=== PATIENT | female | born 1935 | race African-American/Black ===

== ENCOUNTER 2016-11-07 09:56 | Inpatient (IN) | payer MEDICARE, BC ==
[~2016-11-07] VITALS: Ht 170.2 cm; Wt 75.3 kg
[~2016-11-07 09:56] MED LIST: ACCOLATE 220 MG/1 TA PO; ADALAT PO; ADVAIR 250/28 DISKUS IH; ALBUTEROL0.83 MG/ML IH; ATROVENT I0.2 MG/1 M IH; ATROVENT INHALE14 GM IH; AVELOX 400MG T400 MG PO; AVELOX400 MG PO; BROVANA15 MCG/2 M IH; CARDIZEM CD 24240 MG PO; CARDIZEM CD240 MG PO; CARDIZEM120 MG PO; CIPRO; CLOPIDOGREL; CLOPIDOGREL PO; COZAAR100 MG PO; COZAAR50 MG PO; DALIRESP500 MCG PO; DIFLUCAN 100MG100 MG PO; DIFLUCAN200 MG PO; DIOVAN80 M1 PO; DIPYRIDAMOLE; FLONASE NASAL S16 GM NS; FOSAMAX 70MG TA70 MG PO; GENTAMICIN180 MG/502 NS; HCTZ 25MG TAB25 MG PO; IPRATROPIUM 2.2.5 ML IH; K-LOR CON PO; KLOR-CON20 MEQ PO; LEVAQUIN 5500 MG/TA1 PO; LEVAQUIN 750MG750 M1 PO; LEVAQUIN 750MG750 MG PO; LIPITOR20 MG PO; MAXIPIME2 GM IJ; MAXIPIME2 GM IV; MUCINEX 60600 MG/TA1 PO; MUCINEX D 600 M1 TER PO; MUCINEX DM 30 M1 TE1 PO; MUCINEX1200 MG PO; MULTIPLE VITAMI1 CAP PO; MULTIPLE VITAMI1 TA5 PO; NEURONTIN100 MG/CAP PO; NEXIUM40 MG PO; NIFEDIPINE; NORCO 325 MG-51 TAB PO; PERFOROMIS20 MCG/2 M IH; PHENERGAN W/CO120 M1 PO; PLAVIX 75MG TAB75 MG PO; PREDNISONE 2.52.5 MG PO; PREDNISONE 5MG5 MG; PREDNISONE 5MG5 MG PO; PREDNISONE10 MG PO; PREDNISONE20 MG PO; PREVACID 15MG15 M1 PO; PREVACID 30MG30 MG PO; PRILOSEC 20MG20 MG PO; PROTONIX40 MG PO; PROVENTIL0.09 MG/A1 IH; PULMICORT R1 MG/2 ML IH; PULMICORT0.25 MG/2 IH; PULMICORT0.5 MG/2 M IH; PULMICORT0.5 MG/21 IH; PULMICORT180 MCG/A1 IH; PULMICORT180 MCG/Ac IH; REGLAN 10MG10 MG/TAB PO; SINGULAIR 110 MG/TAB PO; SINGULAIR10 MG PO; TESSALON P100 MG/CAP PO; THEO-24 30300 MG/CAP PO; THEO-24300 MG PO; THEODUR 300MG PO; TRIAMTERENE W/H1 TA1 PO; TUSS PO; ZITHROMAX 250M250 MG; ZITHROMAX 250M250 MG PO; ZITHROMAX Z PA250 MG PO; ZITHROMAX500 M2 PO; ZYRTEC 10MG10 MG PO; ZYRTEC5 MG PO; [UNRECOGNIZED DRUG - REMARK] PO; theophylline PO
[2016-11-07 10:18] LABS: BASO % 0.2 % (0.0-2.0); GRAN # 6.7 (1.4-6.5); GRAN % 74.6 % (42.2-75.2); HEMATOCRIT 41.6 % (37.0-47.0); HEMOGLOBIN 14.1 g/dl (12.5-16.0); LYMPH # 1.4 (1.2-3.4); LYMPH % 15.2 % (20.0-51.0); MEAN CELL VOLUME 88 fl (80.0-100.0); MEAN CORPUSCULAR HEMOGLOBIN 30 pg (27.0-31.0); MEAN CORPUSCULAR HGB CONC 34 g/dl (33.0-37.0); MEAN PLATELET VOLUME 9.5 fl (7.4-10.4); MONO # 0.8 (0.1-0.6); MONO % 9.1 % (1.7-9.3); PLATELET COUNT 248 K/mm3 (130-400); RED BLOOD COUNT 4.72 M/mm3 (4.10-5.30); REDCELL DISTRIBUTION WIDTH-CV 12.6 % (11.5-14.5); WHITE BLOOD COUNT 8.9 K/mm3 (4.8-10.8)
[2016-11-07 10:31] LABS: ADJUSTED CALCIUM 9.6 mg/dL (8.4-10.2); ALANINE AMINOTRANSFERASE 24 U/L (9-52); ALBUMIN 3.7 gm/dL (3.5-5.0); ALKALINE PHOSPHATASE 78 U/L (50-136); ANION GAP 10 mmol/L (7-16); BILIRUBIN,TOTAL 0.6 mg/dL (0.0-1.0); BLOOD UREA NITROGEN 23 mg/dL (7-17); CALCIUM 9.4 mg/dL (8.4-10.2); CARBON DIOXIDE 28 mmol/L (22-30); CHLORIDE 102 mmol/L (98-107); CREATININE, serum 1.05 mg/dL (0.52-1.25); GLUCOSE 76 mg/dL (74-106); POTASSIUM 3.3 mmol/L (3.4-5.0); SODIUM 140 mmol/L (137-145); TOTAL PROTEIN 6.8 gm/dL (6.4-8.2)
[2016-11-07 10:43] LABS: B-TYPE NATRIURETIC PEPTIDE 111 pg/mL (0-450)
[2016-11-07 10:47] LABS: TROPONIN-I < 0.012 ng/mL (0.000-0.034)
[2016-11-07 15:30] VITALS: BP 142/57; PULSE 112; TEMP 98.1
[2016-11-07 15:35] VITALS: BP 142/57; PULSE 114; TEMP 98.1
[2016-11-07 17:00] LABS: MAGNESIUM 2.1 mg/dL (1.6-2.3)
[2016-11-07 20:06] VITALS: BP 152/59; PULSE 124; TEMP 98.6
[2016-11-08] VITALS (7 sets, daily range): BP systolic 131–157; BP diastolic 45–78; PULSE 86–101; TEMP 97.8–98.7
[2016-11-08 07:47] LABS: HEMATOCRIT 38.9 % (37.0-47.0); HEMOGLOBIN 12.7 g/dl (12.5-16.0); MEAN CELL VOLUME 91 fl (80.0-100.0); MEAN CORPUSCULAR HEMOGLOBIN 30 pg (27.0-31.0); MEAN CORPUSCULAR HGB CONC 33 g/dl (33.0-37.0); MEAN PLATELET VOLUME 9.9 fl (7.4-10.4); PLATELET COUNT 241 K/mm3 (130-400); RED BLOOD COUNT 4.29 M/mm3 (4.10-5.30); REDCELL DISTRIBUTION WIDTH-CV 12.8 % (11.5-14.5); WHITE BLOOD COUNT 8.7 K/mm3 (4.8-10.8)
[2016-11-08 07:59] LABS: ADD PATHOLOGY DIFF REVIEW NO
[2016-11-08 08:14] LABS: CALCIUM 9.1 mg/dL (8.4-10.2); CREATININE, serum 1.05 mg/dL (0.52-1.25); POTASSIUM 3.9 mmol/L (3.4-5.0)
[2016-11-08 11:18] LABS: BAND 13 % (0-10); NEUTROPHILS 78 % (42.0-75.2); PLATELET ESTIMATE NORMAL (NORMAL); TOTAL CELLS COUNTED 100
[2016-11-09] VITALS (9 sets, daily range): BP systolic 121–166; BP diastolic 54–75; PULSE 82–114; TEMP 96.8–98.4
[2016-11-09 07:56] LABS: CALCIUM 9.5 mg/dL (8.4-10.2); CREATININE, serum 0.94 mg/dL (0.52-1.25); POTASSIUM 3.9 mmol/L (3.4-5.0)
[2016-11-10] VITALS (7 sets, daily range): BP systolic 135–174; BP diastolic 50–95; PULSE 64–98; TEMP 97.5–98.3
[2016-11-11 03:52] VITALS: BP 171/91; PULSE 79; TEMP 98.3
[2016-11-11 07:31] LABS: HEMATOCRIT 40.6 % (37.0-47.0); MEAN CELL VOLUME 90 fl (80.0-100.0); MEAN CORPUSCULAR HEMOGLOBIN 29 pg (27.0-31.0); MEAN CORPUSCULAR HGB CONC 32 g/dl (33.0-37.0); MEAN PLATELET VOLUME 9.9 fl (7.4-10.4); PLATELET COUNT 274 K/mm3 (130-400); RED BLOOD COUNT 4.49 M/mm3 (4.10-5.30); REDCELL DISTRIBUTION WIDTH-CV 12.5 % (11.5-14.5); WHITE BLOOD COUNT 15.3 K/mm3 (4.8-10.8)
[2016-11-11 07:44] LABS: CALCIUM 9.1 mg/dL (8.4-10.2); CREATININE, serum 0.92 mg/dL (0.52-1.25); POTASSIUM 3.2 mmol/L (3.4-5.0)
[2016-11-11 08:14] VITALS: BP 173/85; PULSE 82; TEMP 98.2
[2016-11-11] MEDS ORDERED: PREDNISONE10 MG PO (08:40)
[2016-11-11 09:35] LABS: MAGNESIUM 2.3 mg/dL (1.6-2.3)
[2016-11-11 11:38] VITALS: BP 144/77; PULSE 77; TEMP 98.1
[2016-11-11] MEDS ORDERED: CARDIZEM CD 24240 MG PO (13:43)
== END 2016-11-11 15:40 | disposition home health service (06) | DRG 164 ==
LOC: COL.ER 09:56 → MEDICAL 11:23
PROVIDERS: Emergency Medicine; Internal Medicine; Internal Medicine Pulmonary Disease; Nurse Practitioner Family; Physician Assistant
PROC: 0B968ZZ Drainage of Right Lower Lobe Bronchus, Via Natural or Artificial Opening Endoscopic (ICD-10-PCS; 2016-11-09)
PROC: 0B9B8ZZ Drainage of Left Lower Lobe Bronchus, Via Natural or Artificial Opening Endoscopic (ICD-10-PCS; 2016-11-09)
PROC: 0B958ZZ Drainage of Right Middle Lobe Bronchus, Via Natural or Artificial Opening Endoscopic (ICD-10-PCS; principal; 2016-11-09 09:00)
DX: J44.1 Chronic obstructive pulmonary disease with (acute) exacerbation (principal); J45.901 Unspecified asthma with (acute) exacerbation; I10 Essential (primary) hypertension; E87.6 Hypokalemia; Z66 Do not resuscitate; Z86.73 Personal history of transient ischemic attack (TIA), and cerebral infarction without residual deficits; Z87.891 Personal history of nicotine dependence; J32.9 Chronic sinusitis, unspecified
CPT/HCPCS: 99222-AI; 99232-AI; 99233-AI; 99239; A9284; J0692; J1650; J1956; J2704; J2930; J7120

== ENCOUNTER 2017-02-08 17:59 | Emergency (ER) | payer MEDICARE, BC ==
[~2017-02-08] VITALS: Ht 170.2 cm; Wt 74.1 kg
[2017-02-08 18:04] VITALS: TEMP 98.1
[2017-02-08 19:11] LABS: BASO # 0.1 (0.0-0.2); BASO % 0.9 % (0.0-2.0); EOS # 0.8 (0.0-0.7); EOS % 12.6 % (0-4.0); GRAN # 2.9 (1.4-6.5); GRAN % 44.6 % (42.2-75.2); HEMOGLOBIN 13.4 g/dl (12.5-16.0); LYMPH # 2.2 (1.2-3.4); LYMPH % 33.3 % (20.0-51.0); MEAN CELL VOLUME 88 fl (80.0-100.0); MEAN CORPUSCULAR HEMOGLOBIN 30 pg (27.0-31.0); MEAN CORPUSCULAR HGB CONC 34 g/dl (33.0-37.0); MEAN PLATELET VOLUME 9.9 fl (7.4-10.4); MONO # 0.5 (0.1-0.6); MONO % 8.3 % (1.7-9.3); PLATELET COUNT 270 K/mm3 (130-400); RED BLOOD COUNT 4.55 M/mm3 (4.10-5.30); REDCELL DISTRIBUTION WIDTH-CV 12.5 % (11.5-14.5); WHITE BLOOD COUNT 6.5 K/mm3 (4.8-10.8)
[2017-02-08 19:20] LABS: CALCIUM 10.4 mg/dL (8.4-10.2); CREATININE, serum 1.08 mg/dL (0.52-1.25); POTASSIUM 3.6 mmol/L (3.4-5.0)
[2017-02-08] MEDS ORDERED: MEDROL 4MG DOSPA4 MG PO (19:36)
[2017-02-08 20:13] VITALS: BP 102/68; PULSE 78
== END 2017-02-08 20:19 | disposition home or self-care (01) ==
LOC: COL.ER 17:59
PROVIDERS: Emergency Medicine
DX: J44.1 Chronic obstructive pulmonary disease with (acute) exacerbation (principal); I10 Essential (primary) hypertension; M19.90 Unspecified osteoarthritis, unspecified site; Z87.891 Personal history of nicotine dependence; Z79.02 Long term (current) use of antithrombotics/antiplatelets; Z86.73 Personal history of transient ischemic attack (TIA), and cerebral infarction without residual deficits; Z95.9 Presence of cardiac and vascular implant and graft, unspecified; Z90.710 Acquired absence of both cervix and uterus; Z98.51 Tubal ligation status
CPT/HCPCS: J7512

== ENCOUNTER 2017-02-28 21:56 | Emergency (ER) | payer MEDICARE, BC ==
[~2017-02-28] VITALS: Ht 170.2 cm; Wt 69.1 kg
[~2017-02-28 21:56] MED LIST changes: +MEDROL 4MG DOSPA4 MG PO
[2017-02-28 22:00] VITALS: TEMP 98.3
[2017-02-28 22:43] LABS: ARTERIAL BLD GAS O2 SATURATION 98.6 % (92-100); ARTERIAL BLD GAS TCO2 CT 27.5; ARTERIAL BLOOD GAS BASE EXCESS 1.2 (-2-2); ARTERIAL BLOOD GAS HCO3 26.2 meq/L (22-26); ARTERIAL BLOOD GAS PHT 7.41 C (7.35-7.45); ARTERIAL BLOOD GAS pH 7.41 (7.35-7.45); OXYHEMOGLOBIN 97.8 %
[2017-02-28 22:45] LABS: ALLEN TEST YES; ALLENS TEST RESULT PASS; ARTERIAL BLOOD GAS PO2 166.9 mmHg (80-100); ARTERIAL BLOOD GAS PO2T 166.9 (80-100); ATS? YES
[2017-02-28 23:15] LABS: BASO % 0.7 % (0.0-2.0); EOS # 0.7 (0.0-0.7); EOS % 11.1 % (0-4.0); GRAN # 2.5 (1.4-6.5); GRAN % 41.8 % (42.2-75.2); HEMATOCRIT 39.7 % (37.0-47.0); LYMPH # 2.2 (1.2-3.4); LYMPH % 37.4 % (20.0-51.0); MEAN CELL VOLUME 88 fl (80.0-100.0); MEAN CORPUSCULAR HEMOGLOBIN 29 pg (27.0-31.0); MEAN CORPUSCULAR HGB CONC 33 g/dl (33.0-37.0); MEAN PLATELET VOLUME 10.1 fl (7.4-10.4); MONO # 0.5 (0.1-0.6); MONO % 8.7 % (1.7-9.3); PLATELET COUNT 271 K/mm3 (130-400); RED BLOOD COUNT 4.53 M/mm3 (4.10-5.30); REDCELL DISTRIBUTION WIDTH-CV 12.9 % (11.5-14.5)
[2017-02-28 23:20] LABS: INR 1.1 (0.8-3.0); PROTHROMBIN TIME 12.1 SECONDS (9.7-12.8)
[2017-02-28 23:23] LABS: PARTIAL THROMBOPLASTIN TIME 36.5 SECONDS (26.0-37.0)
[2017-02-28 23:28] LABS: ADJUSTED CALCIUM 9.7 mg/dL (8.4-10.2); ALANINE AMINOTRANSFERASE 20 U/L (9-52); ALBUMIN 3.8 gm/dL (3.5-5.0); ALKALINE PHOSPHATASE 71 U/L (50-136); ANION GAP 11 mmol/L (7-16); BILIRUBIN,TOTAL 0.6 mg/dL (0.0-1.0); BLOOD UREA NITROGEN 17 mg/dL (7-17); CALCIUM 9.5 mg/dL (8.4-10.2); CARBON DIOXIDE 26 mmol/L (22-30); CHLORIDE 102 mmol/L (98-107); CREATININE, serum 1.31 mg/dL (0.52-1.25); GLUCOSE 124 mg/dL (74-106); POTASSIUM 3.3 mmol/L (3.4-5.0); SODIUM 139 mmol/L (137-145); TOTAL PROTEIN 6.9 gm/dL (6.4-8.2)
[2017-02-28 23:39] LABS: B-TYPE NATRIURETIC PEPTIDE 77 pg/mL (0-450)
[2017-02-28] MEDS ORDERED: LEVAQUIN 750MG750 M1 PO (23:55)
[2017-02-28] MEDS ORDERED: PREDNISONE20 MG PO (23:55)
[2017-03-01 00:11] LABS: TROPONIN-I < 0.012 ng/mL (0.000-0.034)
[2017-03-01 00:24] VITALS: BP 145/68; PULSE 86
== END 2017-03-01 00:24 | disposition home or self-care (01) ==
LOC: COL.ER 21:56
PROVIDERS: Emergency Medicine
DX: J44.1 Chronic obstructive pulmonary disease with (acute) exacerbation (principal); J45.901 Unspecified asthma with (acute) exacerbation; J06.9 Acute upper respiratory infection, unspecified; I10 Essential (primary) hypertension; Z86.73 Personal history of transient ischemic attack (TIA), and cerebral infarction without residual deficits; Z87.891 Personal history of nicotine dependence
CPT/HCPCS: J2930; J3105; J3475; J7030

== ENCOUNTER → 2017-03-13 | Outpatient (CLI) | payer MEDICARE, BC ==
[~2017-03-13] MED LIST changes: +MIRTAZAPINE7.5 MG PO
== END ==
LOC: MC.RAD 09:28
DX: Z12.31 Encounter for screening mammogram for malignant neoplasm of breast (principal)

== ENCOUNTER 2017-04-13 12:17 | Inpatient (IN) | payer MEDICARE, BC ==
[~2017-04-13] VITALS: Ht 170.2 cm; Wt 75.1 kg
[~2017-04-13 12:17] MED LIST changes: -MIRTAZAPINE7.5 MG PO
[2017-04-13 13:53] LABS: BASO # 0.1 (0.0-0.2); BASO % 0.8 % (0.0-2.0); EOS # 0.6 (0.0-0.7); EOS % 9.5 % (0-4.0); GRAN % 50.1 % (42.2-75.2); HEMATOCRIT 40.5 % (37.0-47.0); HEMOGLOBIN 13.6 g/dl (12.5-16.0); LYMPH # 1.8 (1.2-3.4); LYMPH % 30.3 % (20.0-51.0); MEAN CELL VOLUME 87 fl (80.0-100.0); MEAN CORPUSCULAR HEMOGLOBIN 29 pg (27.0-31.0); MEAN CORPUSCULAR HGB CONC 34 g/dl (33.0-37.0); MEAN PLATELET VOLUME 9.9 fl (7.4-10.4); MONO # 0.5 (0.1-0.6); PLATELET COUNT 321 K/mm3 (130-400); RED BLOOD COUNT 4.66 M/mm3 (4.10-5.30); REDCELL DISTRIBUTION WIDTH-CV 12.5 % (11.5-14.5)
[2017-04-13 13:59] LABS: ADJUSTED CALCIUM 9.6 mg/dL (8.4-10.2); ALANINE AMINOTRANSFERASE 23 U/L (9-52); ALKALINE PHOSPHATASE 70 U/L (50-136); ANION GAP 10 mmol/L (7-16); BILIRUBIN,TOTAL 0.5 mg/dL (0.0-1.0); BLOOD UREA NITROGEN 14 mg/dL (7-17); CALCIUM 9.6 mg/dL (8.4-10.2); CARBON DIOXIDE 28 mmol/L (22-30); CHLORIDE 100 mmol/L (98-107); CREATININE, serum 1.14 mg/dL (0.52-1.25); GLUCOSE 102 mg/dL (74-106); POTASSIUM 3.4 mmol/L (3.4-5.0); SODIUM 138 mmol/L (137-145); TOTAL PROTEIN 7.1 gm/dL (6.4-8.2)
[2017-04-13 14:07] LABS: B-TYPE NATRIURETIC PEPTIDE 66 pg/mL (0-450)
[2017-04-13 14:12] LABS: TROPONIN-I < 0.012 ng/mL (0.000-0.034)
[2017-04-13] MEDS ORDERED: ZYRTEC 10MG10 MG PO (16:14)
[2017-04-13] MEDS ORDERED: MIRTAZAPINE7.5 MG PO (16:18)
[2017-04-13 17:11] VITALS: BP 161/68; PULSE 109; TEMP 97.8
[2017-04-13 20:04] VITALS: BP 138/59; PULSE 104; TEMP 98
[2017-04-14 00:19] VITALS: BP 132/56; PULSE 92; TEMP 98.2
[2017-04-14 03:41] VITALS: BP 133/56; PULSE 88; TEMP 98.1
[2017-04-14 07:42] VITALS: BP 136/57; PULSE 94; TEMP 98.1
[2017-04-14 12:12] VITALS: BP 140/58; PULSE 111; TEMP 98
[2017-04-14 16:00] VITALS: BP 144/52; PULSE 103; TEMP 98
[2017-04-14 20:11] VITALS: BP 122/45; PULSE 95; TEMP 97.6
[2017-04-15] VITALS (7 sets, daily range): BP systolic 119–149; BP diastolic 44–66; PULSE 95–105; TEMP 97.8–99
[2017-04-15 07:24] LABS: HEMATOCRIT 38.2 % (37.0-47.0); HEMOGLOBIN 12.6 g/dl (12.5-16.0); MEAN CELL VOLUME 88 fl (80.0-100.0); MEAN CORPUSCULAR HEMOGLOBIN 29 pg (27.0-31.0); MEAN CORPUSCULAR HGB CONC 33 g/dl (33.0-37.0); MEAN PLATELET VOLUME 10.6 fl (7.4-10.4); PLATELET COUNT 294 K/mm3 (130-400); RED BLOOD COUNT 4.36 M/mm3 (4.10-5.30); WHITE BLOOD COUNT 18.4 K/mm3 (4.8-10.8)
[2017-04-15 07:29] LABS: ADD PATHOLOGY DIFF REVIEW NO
[2017-04-15 07:38] LABS: ADJUSTED CALCIUM 9.4 mg/dL (8.4-10.2); ALANINE AMINOTRANSFERASE 20 U/L (9-52); ALBUMIN 3.7 gm/dL (3.5-5.0); ALKALINE PHOSPHATASE 60 U/L (50-136); ANION GAP 10 mmol/L (7-16); BILIRUBIN,TOTAL 0.3 mg/dL (0.0-1.0); BLOOD UREA NITROGEN 31 mg/dL (7-17); C-REACTIVE PROTEIN < 0.5 mg/dL (0.0-0.9); CALCIUM 9.2 mg/dL (8.4-10.2); CARBON DIOXIDE 24 mmol/L (22-30); CHLORIDE 105 mmol/L (98-107); CREATININE, serum 1.25 mg/dL (0.52-1.25); GLUCOSE 159 mg/dL (74-106); MAGNESIUM 2.2 mg/dL (1.6-2.3); POTASSIUM 3.6 mmol/L (3.4-5.0); SODIUM 139 mmol/L (137-145); TOTAL PROTEIN 6.3 gm/dL (6.4-8.2)
[2017-04-15 08:02] LABS: BAND 6 % (0-10); NEUTROPHILS 89 % (42.0-75.2); TOTAL CELLS COUNTED 100
[2017-04-15 08:03] LABS: OVALOCYTES 1+; PLATELET ESTIMATE INCREASED (NORMAL)
[2017-04-16 03:40] VITALS: BP 142/58; PULSE 98; TEMP 98.2
[2017-04-16 07:37] VITALS: BP 149/55; PULSE 100; TEMP 98.3
[2017-04-16 11:42] VITALS: BP 150/65; PULSE 75
[2017-04-16 15:50] VITALS: BP 141/69; PULSE 97; TEMP 97.8
[2017-04-16 20:17] VITALS: BP 148/61; PULSE 86; TEMP 98.5
[2017-04-16 23:26] VITALS: BP 137/51; PULSE 93; TEMP 98.5
[2017-04-17 03:00] VITALS: BP 153/63; PULSE 93; TEMP 98.1
[2017-04-17 07:41] LABS: HEMATOCRIT 42.9 % (37.0-47.0); HEMOGLOBIN 14.4 g/dl (12.5-16.0); MEAN CELL VOLUME 88 fl (80.0-100.0); MEAN CORPUSCULAR HEMOGLOBIN 29 pg (27.0-31.0); MEAN CORPUSCULAR HGB CONC 34 g/dl (33.0-37.0); MEAN PLATELET VOLUME 10.3 fl (7.4-10.4); PLATELET COUNT 333 K/mm3 (130-400); REDCELL DISTRIBUTION WIDTH-CV 13.1 % (11.5-14.5); WHITE BLOOD COUNT 12.9 K/mm3 (4.8-10.8)
[2017-04-17 07:56] LABS: ADJUSTED CALCIUM 9.3 mg/dL (8.4-10.2); ALBUMIN 4.1 gm/dL (3.5-5.0); BILIRUBIN,TOTAL 0.5 mg/dL (0.0-1.0); CALCIUM 9.4 mg/dL (8.4-10.2); CREATININE, serum 1.07 mg/dL (0.52-1.25); POTASSIUM 3.3 mmol/L (3.4-5.0); TOTAL PROTEIN 7.2 gm/dL (6.4-8.2)
[2017-04-17 08:15] VITALS: BP 141/70; PULSE 101; TEMP 98.1
[2017-04-17 11:14] VITALS: BP 156/59; PULSE 97; TEMP 98.3
[2017-04-17 16:22] VITALS: BP 121/57; PULSE 100; TEMP 98.3
[2017-04-17 20:07] VITALS: BP 153/78; PULSE 98; TEMP 98.4
[2017-04-17 23:44] VITALS: BP 139/59; PULSE 98; TEMP 98.5
[2017-04-18 04:00] VITALS: BP 151/68; PULSE 94; TEMP 99.1
[2017-04-18 06:59] LABS: HEMATOCRIT 39.3 % (37.0-47.0); MEAN CELL VOLUME 88 fl (80.0-100.0); MEAN CORPUSCULAR HEMOGLOBIN 29 pg (27.0-31.0); MEAN CORPUSCULAR HGB CONC 33 g/dl (33.0-37.0); MEAN PLATELET VOLUME 10.4 fl (7.4-10.4); PLATELET COUNT 297 K/mm3 (130-400); RED BLOOD COUNT 4.46 M/mm3 (4.10-5.30); REDCELL DISTRIBUTION WIDTH-CV 13.1 % (11.5-14.5); WHITE BLOOD COUNT 12.1 K/mm3 (4.8-10.8)
[2017-04-18 07:12] LABS: ADJUSTED CALCIUM 9.5 mg/dL (8.4-10.2); ALBUMIN 3.3 gm/dL (3.5-5.0); BILIRUBIN,TOTAL 0.3 mg/dL (0.0-1.0); CALCIUM 8.9 mg/dL (8.4-10.2); CREATININE, serum 1.14 mg/dL (0.52-1.25); POTASSIUM 3.7 mmol/L (3.4-5.0); TOTAL PROTEIN 6.1 gm/dL (6.4-8.2)
[2017-04-18 07:50] VITALS: BP 167/73; PULSE 100; TEMP 98.9
[2017-04-18 09:14] VITALS: BP 138/70; PULSE 98; TEMP 97
[2017-04-18] MEDS ORDERED: ZITHROMAX 250M250 MG PO (09:59)
[2017-04-18] MEDS ORDERED: PREDNISONE10 MG PO (10:03)
== END 2017-04-18 11:50 | disposition home or self-care (01) | DRG 192 ==
LOC: COL.ER 12:17 → MEDICAL 15:01
PROVIDERS: Emergency Medicine; Internal Medicine Cardiovascular Disease; Internal Medicine Pulmonary Disease
DX: J44.1 Chronic obstructive pulmonary disease with (acute) exacerbation (principal); I10 Essential (primary) hypertension; D72.1 Eosinophilia; E87.6 Hypokalemia; Z66 Do not resuscitate; R53.81 Other malaise; Z87.891 Personal history of nicotine dependence; Z86.73 Personal history of transient ischemic attack (TIA), and cerebral infarction without residual deficits
CPT/HCPCS: 99223-AI; 99232-AI; 99233-AI; 99239; G0378; G8978-GP; G8979-GP; G8987-GO; G8988-GO; J1650; J2920; J2930; J7512

== ENCOUNTER 2017-06-26 13:02 | Emergency (ER) | payer MEDICARE, BC ==
[~2017-06-26] VITALS: Ht 170.2 cm; Wt 70.9 kg
[~2017-06-26 13:02] MED LIST changes: +MIRTAZAPINE7.5 MG PO
[2017-06-26 13:04] VITALS: TEMP 98.1
[2017-06-26 14:06] LABS: BASO # 0.1 (0.0-0.2); BASO % 0.9 % (0.0-2.0); EOS # 0.7 (0.0-0.7); GRAN # 3.2 (1.4-6.5); GRAN % 49.1 % (42.2-75.2); HEMATOCRIT 38.2 % (37.0-47.0); HEMOGLOBIN 12.7 g/dl (12.5-16.0); LYMPH # 2.1 (1.2-3.4); MEAN CELL VOLUME 90 fl (80.0-100.0); MEAN CORPUSCULAR HEMOGLOBIN 30 pg (27.0-31.0); MEAN CORPUSCULAR HGB CONC 33 g/dl (33.0-37.0); MONO # 0.5 (0.1-0.6); MONO % 7.8 % (1.7-9.3); PLATELET COUNT 277 K/mm3 (130-400); RED BLOOD COUNT 4.27 M/mm3 (4.10-5.30); WHITE BLOOD COUNT 6.5 K/mm3 (4.8-10.8)
[2017-06-26 14:14] LABS: ADJUSTED CALCIUM 10.3 mg/dL (8.4-10.2); ALBUMIN 3.8 gm/dL (3.5-5.0); BILIRUBIN,TOTAL 0.6 mg/dL (0.0-1.0); CALCIUM 10.1 mg/dL (8.4-10.2); CREATININE, serum 1.14 mg/dL (0.52-1.25); POTASSIUM 3.2 mmol/L (3.4-5.0); TOTAL PROTEIN 7.1 gm/dL (6.4-8.2)
[2017-06-26] MEDS ORDERED: CARTIA XT300 MG PO (15:10)
[2017-06-26] MEDS ORDERED: ZITHROMAX Z PA250 MG PO (15:53)
[2017-06-26] MEDS ORDERED: PREDNISONE10 MG PO (15:53)
[2017-06-26 16:10] VITALS: BP 101/85; PULSE 90
== END 2017-06-26 16:19 | disposition home or self-care (01) ==
LOC: COL.ER 13:02
PROVIDERS: Family Medicine
DX: J44.1 Chronic obstructive pulmonary disease with (acute) exacerbation (principal); I10 Essential (primary) hypertension; Z87.891 Personal history of nicotine dependence
CPT/HCPCS: J2930

== ENCOUNTER 2017-08-07 10:00 | Outpatient (RCR) | payer MEDICARE, BC ==
[2017-07-05 13:15] VITALS: BP 120/71; PULSE 68; TEMP 98.3
[~2017-08-07] VITALS: Ht 170.2 cm; Wt 74.9 kg
[~2017-08-07 10:00] MED LIST changes: +CARTIA XT300 MG PO
[2017-08-07 10:28] VITALS: BP 124/65; PULSE 107; TEMP 97.3
== END 2017-09-06 12:43 | disposition home or self-care (01) ==
LOC: EUO 10:00
DX: J44.9 Chronic obstructive pulmonary disease, unspecified (principal); Z79.899 Other long term (current) drug therapy
CPT/HCPCS: J2182

== ENCOUNTER 2017-09-05 13:29 | Outpatient (CLI) | payer MEDICARE, BC ==
[~2017-09-05] VITALS: Ht 170.2 cm; Wt 46.3 kg
[2017-09-05 12:57] VITALS: BP 154/78; PULSE 106; TEMP 97.3
== END 2017-09-06 12:43 | disposition home or self-care (01) ==
LOC: EUO 13:29
DX: J44.9 Chronic obstructive pulmonary disease, unspecified (principal)

== ENCOUNTER 2017-10-03 12:23 | Outpatient (CLI) | payer MEDICARE, BC ==
[~2017-10-03] VITALS: Ht 170.2 cm; Wt 74.5 kg
[2017-10-03 12:58] VITALS: BP 134/55; PULSE 89; TEMP 98
== END 2017-10-03 14:25 | disposition home or self-care (01) ==
LOC: EUO 12:23
DX: J44.9 Chronic obstructive pulmonary disease, unspecified (principal); Z79.899 Other long term (current) drug therapy
CPT/HCPCS: J2182

== ENCOUNTER → 2017-11-02 | Outpatient (CLI) | payer MEDICARE, BC ==
[2017-11-02 13:49] VITALS: BP 148/72; PULSE 93; TEMP 98.1
== END ==
LOC: EUO 10-31 13:00
DX: J44.9 Chronic obstructive pulmonary disease, unspecified (principal)
CPT/HCPCS: J2182

== ENCOUNTER 2017-11-24 11:45 | Emergency (ER) | payer MEDICARE, BC ==
[~2017-11-24] VITALS: Ht 170.2 cm; Wt 72.7 kg
[2017-11-24 11:49] VITALS: TEMP 98.9
[2017-11-24 12:30] LABS: BASO % 0.8 % (0.0-2.0); EOS % 0.8 % (0-4.0); GRAN # 2.8 (1.4-6.5); GRAN % 51.6 % (42.2-75.2); HEMATOCRIT 40.4 % (37.0-47.0); HEMOGLOBIN 13.2 g/dl (12.5-16.0); MEAN CELL VOLUME 87 fl (80.0-100.0); MEAN CORPUSCULAR HEMOGLOBIN 28 pg (27.0-31.0); MEAN CORPUSCULAR HGB CONC 33 g/dl (33.0-37.0); MEAN PLATELET VOLUME 9.6 fl (7.4-10.4); MONO # 0.5 (0.1-0.6); MONO % 9.6 % (1.7-9.3); PLATELET COUNT 332 K/mm3 (130-400); RED BLOOD COUNT 4.65 M/mm3 (4.10-5.30); REDCELL DISTRIBUTION WIDTH-CV 12.5 % (11.5-14.5)
[2017-11-24 12:43] LABS: ALANINE AMINOTRANSFERASE 26 U/L (9-52); ALBUMIN 3.8 gm/dL (3.5-5.0); ALKALINE PHOSPHATASE 80 U/L (50-136); ANION GAP 12 mmol/L (7-16); AST,SGOT 16 U/L (15-37); BILIRUBIN,TOTAL 0.4 mg/dL (0.0-1.0); BLOOD UREA NITROGEN 8 mg/dL (7-17); C-REACTIVE PROTEIN 0.6 mg/dL (0.0-0.9); CALCIUM 10.1 mg/dL (8.4-10.2); CARBON DIOXIDE 24 mmol/L (22-30); CHLORIDE 104 mmol/L (98-107); CREATININE, serum 1.03 mg/dL (0.52-1.25); GLUCOSE 99 mg/dL (74-106); POTASSIUM 3.7 mmol/L (3.4-5.0); SODIUM 141 mmol/L (137-145)
[2017-11-24 12:55] LABS: ARTERIAL BLD GAS O2 SATURATION 94.6 % (92-100); ARTERIAL BLD GAS TCO2 CT 21.4; ARTERIAL BLOOD GAS BASE EXCESS -2.9 (-2-2); ARTERIAL BLOOD GAS HCO3 20.5 meq/L (22-26); ARTERIAL BLOOD GAS PCO2 31.4 mmHg (35-45); ARTERIAL BLOOD GAS PO2 75.9 mmHg (80-100); ARTERIAL BLOOD GAS pH 7.43 (7.35-7.45)
[2017-11-24 13:04] LABS: TROPONIN-I < 0.012 ng/mL (0.000-0.034)
[2017-11-24 13:44] VITALS: BP 136/78; PULSE 77
== END 2017-11-24 14:36 | disposition home or self-care (01) ==
LOC: COL.ER 11:45
PROVIDERS: Emergency Medicine
DX: J44.1 Chronic obstructive pulmonary disease with (acute) exacerbation (principal); I10 Essential (primary) hypertension; Z79.51 Long term (current) use of inhaled steroids; Z79.02 Long term (current) use of antithrombotics/antiplatelets; Z79.52 Long term (current) use of systemic steroids; Z86.73 Personal history of transient ischemic attack (TIA), and cerebral infarction without residual deficits; Z87.891 Personal history of nicotine dependence
CPT/HCPCS: J7512

== ENCOUNTER 2017-12-04 12:40 | Outpatient (CLI) | payer MEDICARE, BC ==
[~2017-12-04] VITALS: Ht 170.2 cm; Wt 71.4 kg
[2017-12-04 13:24] VITALS: BP 139/64; PULSE 82; TEMP 98.7
== END 2017-12-04 13:32 | disposition home or self-care (01) ==
LOC: EUO 12:40
DX: J44.9 Chronic obstructive pulmonary disease, unspecified (principal)
CPT/HCPCS: J2182

== ENCOUNTER 2018-01-01 12:35 | Outpatient (CLI) | payer MEDICARE, BC ==
[~2018-01-01] VITALS: Ht 170.2 cm; Wt 65.0 kg
[2018-01-01 13:19] VITALS: BP 149/71; PULSE 90; TEMP 97.7
== END 2018-01-01 16:39 | disposition home or self-care (01) ==
LOC: EUO 12:35
DX: J44.9 Chronic obstructive pulmonary disease, unspecified (principal); Z79.899 Other long term (current) drug therapy
CPT/HCPCS: J2182

== ENCOUNTER 2018-01-29 12:36 | Outpatient (CLI) | payer MEDICARE, BC ==
[~2018-01-29] VITALS: Ht 170.2 cm; Wt 64.1 kg
[2018-01-29 13:00] VITALS: BP 13/72; PULSE 109; TEMP 97.9
== END 2018-01-29 14:16 | disposition home or self-care (01) ==
LOC: EUO 12:36
DX: J44.9 Chronic obstructive pulmonary disease, unspecified (principal); Z79.899 Other long term (current) drug therapy
CPT/HCPCS: J2182

== ENCOUNTER → 2018-03-26 | Outpatient (CLI) | payer MEDICARE, BC ==
[2018-03-26 12:58] VITALS: BP 137/73; PULSE 91; TEMP 96.7
== END ==
LOC: EUO 12:26
DX: J44.9 Chronic obstructive pulmonary disease, unspecified (principal)
CPT/HCPCS: J2182

== ENCOUNTER 2018-03-29 12:16 | Emergency (ER) | payer MEDICARE, BC ==
[~2018-03-29] VITALS: Ht 170.2 cm; Wt 67.3 kg
[2018-03-29 12:23] VITALS: TEMP 98.4
[2018-03-29 12:45] LABS: BASO # 0.1 (0.0-0.2); BASO % 0.9 % (0.0-2.0); EOS # 0.1 (0.0-0.7); EOS % 1.3 % (0-4.0); GRAN # 1.9 (1.4-6.5); GRAN % 35.2 % (42.2-75.2); HEMATOCRIT 42.2 % (37.0-47.0); HEMOGLOBIN 14.1 g/dl (12.5-16.0); LYMPH # 2.9 (1.2-3.4); MEAN CELL VOLUME 87 fl (80.0-100.0); MEAN CORPUSCULAR HEMOGLOBIN 29 pg (27.0-31.0); MEAN CORPUSCULAR HGB CONC 33 g/dl (33.0-37.0); MONO # 0.6 (0.1-0.6); MONO % 10.4 % (1.7-9.3); PLATELET COUNT 295 K/mm3 (130-400); RED BLOOD COUNT 4.88 M/mm3 (4.10-5.30); REDCELL DISTRIBUTION WIDTH-CV 11.9 % (11.5-14.5)
[2018-03-29 13:00] LABS: ALBUMIN 3.9 gm/dL (3.5-5.0); BILIRUBIN,TOTAL 0.4 mg/dL (0.0-1.0); CREATININE, serum 0.98 mg/dL (0.52-1.25); POTASSIUM 3.8 mmol/L (3.4-5.0); TOTAL PROTEIN 7.5 gm/dL (6.4-8.2)
[2018-03-29] MEDS ORDERED: ZITHROMAX Z PA250 MG PO (14:47)
[2018-03-29] MEDS ORDERED: PREDNISONE20 MG PO (14:47)
[2018-03-29 14:48] VITALS: BP 117/85; PULSE 98
== END 2018-03-29 15:02 | disposition home or self-care (01) ==
LOC: COL.ER 12:16
PROVIDERS: Family Medicine
DX: J44.1 Chronic obstructive pulmonary disease with (acute) exacerbation (principal); Z87.891 Personal history of nicotine dependence; Z79.02 Long term (current) use of antithrombotics/antiplatelets
CPT/HCPCS: J2930

== ENCOUNTER → 2018-03-30 | Outpatient (CLI) | payer MEDICARE, BC | LOC: MC.RAD 09:44 | DX: Z12.31 Encounter for screening mammogram for malignant neoplasm of breast (principal) ==

== ENCOUNTER 2018-04-23 12:44 | Outpatient (CLI) | payer MEDICARE, BC ==
[~2018-04-23] VITALS: Ht 170.2 cm; Wt 65.3 kg
[2018-04-23] MEDS ORDERED: PROAIR HFA0.09 MG/AC IH (13:28)
[2018-04-23] MEDS ORDERED: REMERON 15M15 MG/TA1 PO (13:34)
[2018-04-23 13:38] VITALS: BP 116/52; PULSE 92; TEMP 97.3
== END 2018-04-23 14:21 | disposition home or self-care (01) ==
LOC: EUO 12:44
DX: J44.9 Chronic obstructive pulmonary disease, unspecified (principal); Z79.899 Other long term (current) drug therapy
CPT/HCPCS: J2182

== ENCOUNTER 2018-05-23 12:49 | Emergency (ER) | payer MEDICARE, BC ==
[~2018-05-23] VITALS: Ht 170.2 cm; Wt 62.3 kg
[~2018-05-23 12:49] MED LIST changes: +PROAIR HFA0.09 MG/AC IH; +REMERON 15M15 MG/TA1 PO
[2018-05-23 12:50] VITALS: TEMP 97.4
[2018-05-23 13:32] LABS: EOS # 0.1 (0.0-0.7); EOS % 1.2 % (0-4.0); GRAN # 1.6 (1.4-6.5); GRAN % 40.7 % (42.2-75.2); HEMATOCRIT 39.1 % (37.0-47.0); HEMOGLOBIN 13.3 g/dl (12.5-16.0); LYMPH # 1.9 (1.2-3.4); LYMPH % 47.4 % (20.0-51.0); MEAN CELL VOLUME 85 fl (80.0-100.0); MEAN CORPUSCULAR HEMOGLOBIN 29 pg (27.0-31.0); MEAN CORPUSCULAR HGB CONC 34 g/dl (33.0-37.0); MEAN PLATELET VOLUME 10.3 fl (7.4-10.4); MONO # 0.4 (0.1-0.6); MONO % 9.5 % (1.7-9.3); PLATELET COUNT 240 K/mm3 (130-400); RED BLOOD COUNT 4.59 M/mm3 (4.10-5.30); REDCELL DISTRIBUTION WIDTH-CV 12.1 % (11.5-14.5)
[2018-05-23 13:49] LABS: ALANINE AMINOTRANSFERASE 20 U/L (9-52); ALBUMIN 3.8 gm/dL (3.5-5.0); ALKALINE PHOSPHATASE 62 U/L (50-136); ANION GAP 11 mmol/L (7-16); AST,SGOT 18 U/L (15-37); BILIRUBIN,TOTAL 0.4 mg/dL (0.0-1.0); BLOOD UREA NITROGEN 12 mg/dL (7-17); C-REACTIVE PROTEIN 0.6 mg/dL (0.0-0.9); CALCIUM 9.9 mg/dL (8.4-10.2); CARBON DIOXIDE 26 mmol/L (22-30); CHLORIDE 101 mmol/L (98-107); CREATININE, serum 0.93 mg/dL (0.52-1.25); GLUCOSE 101 mg/dL (74-106); POTASSIUM 3.8 mmol/L (3.4-5.0); SODIUM 137 mmol/L (137-145)
[2018-05-23 13:56] LABS: TROPONIN-I < 0.012 ng/mL (0.000-0.034)
[2018-05-23] MEDS ORDERED: PROVENTIL0.09 MG/A1 IH (14:34)
[2018-05-23] MEDS ORDERED: ZITHROMAX Z PA250 MG PO (14:34)
[2018-05-23] MEDS ORDERED: PREDNISONE20 MG PO (14:34)
[2018-05-23 14:44] VITALS: BP 146/74; PULSE 70
== END 2018-05-23 14:44 | disposition home or self-care (01) ==
LOC: COL.ER 12:49
PROVIDERS: Physician Assistant
DX: J44.1 Chronic obstructive pulmonary disease with (acute) exacerbation (principal); Z79.02 Long term (current) use of antithrombotics/antiplatelets
CPT/HCPCS: J2930; J3475

== ENCOUNTER → 2018-06-20 | Outpatient (CLI) | payer MEDICARE, BC ==
[~2018-06-20] VITALS: Ht 170.2 cm; Wt 63.2 kg
[2018-06-20 12:56] VITALS: BP 147/64; PULSE 93; TEMP 97.5
== END ==
LOC: EUO 12:36
DX: J44.9 Chronic obstructive pulmonary disease, unspecified (principal); Z79.899 Other long term (current) drug therapy
CPT/HCPCS: J2182

== ENCOUNTER 2018-07-18 09:50 | Outpatient (CLI) | payer MEDICARE, BC ==
[2018-07-18] MEDS ORDERED: IPRATROPIUM BROM3 M1 IH (10:04)
[2018-07-18 10:33] VITALS: BP 135/64; PULSE 97; TEMP 98.1
== END 2018-07-18 10:43 | disposition home or self-care (01) ==
LOC: EUO 09:50
DX: J44.9 Chronic obstructive pulmonary disease, unspecified (principal); Z79.899 Other long term (current) drug therapy
CPT/HCPCS: J2182

== ENCOUNTER 2018-08-15 12:48 | Outpatient (CLI) | payer MEDICARE, BC ==
[~2018-08-15] VITALS: Ht 170.2 cm; Wt 62.7 kg
[~2018-08-15 12:48] MED LIST changes: +IPRATROPIUM BROM3 M1 IH
[2018-08-15 13:30] VITALS: BP 153/69; PULSE 83; TEMP 97.1
== END 2018-08-15 13:31 | disposition home or self-care (01) ==
LOC: EUO 12:48
DX: J44.9 Chronic obstructive pulmonary disease, unspecified (principal); Z79.899 Other long term (current) drug therapy
CPT/HCPCS: J2182

== ENCOUNTER 2018-09-12 10:30 | Outpatient (RCR) | payer MEDICARE, BC | END 2018-09-17 10:02 | disposition home or self-care (01) | LOC: MKS.ESL.OT 10:30 | DX: I27.20 Pulmonary hypertension, unspecified (principal); J44.9 Chronic obstructive pulmonary disease, unspecified | CPT/HCPCS: G8978-GO; G8979-GO; G8980-GO ==

== ENCOUNTER 2018-10-11 12:51 | Outpatient (CLI) | payer MEDICARE, BC ==
[~2018-10-11] VITALS: Ht 170.2 cm; Wt 64.3 kg
[2018-10-11 13:36] VITALS: BP 125/60; PULSE 90; TEMP 97
== END 2018-10-11 14:15 | disposition home or self-care (01) ==
LOC: EUO 12:51
DX: J44.9 Chronic obstructive pulmonary disease, unspecified (principal); Z79.899 Other long term (current) drug therapy
CPT/HCPCS: J2182

== ENCOUNTER 2018-11-08 12:35 | Outpatient (CLI) | payer MEDICARE, BC | END 2018-11-08 15:00 | disposition home or self-care (01) | LOC: EUO 12:35 | DX: J44.9 Chronic obstructive pulmonary disease, unspecified (principal); Z79.899 Other long term (current) drug therapy | CPT/HCPCS: J2182 ==

== ENCOUNTER 2018-12-10 12:43 | Outpatient (CLI) | payer MEDICARE, BC ==
[2018-12-10 12:53] VITALS: BP 149/57; PULSE 87; TEMP 97.5
== END 2018-12-10 13:40 | disposition home or self-care (01) ==
LOC: EUO 12:43
DX: J44.9 Chronic obstructive pulmonary disease, unspecified (principal); Z79.899 Other long term (current) drug therapy
CPT/HCPCS: J2182

== ENCOUNTER 2019-01-10 13:31 | Outpatient (CLI) | payer MEDICARE, BC ==
[~2019-01-10] VITALS: Ht 170.2 cm; Wt 67.0 kg
[2019-01-10 13:44] VITALS: BP 127/66; PULSE 91; TEMP 98.2
--- NOTE | 2019-01-10 14:29 | NUR ---
Pt amairani Nucala well.
--- NOTE | 2019-01-10 15:06 | NUR ---
Pt discharged per ambulation.
== END 2019-01-10 15:06 | disposition home or self-care (01) ==
LOC: EUO 13:31
DX: J44.9 Chronic obstructive pulmonary disease, unspecified (principal); Z79.899 Other long term (current) drug therapy
CPT/HCPCS: J2182

== ENCOUNTER 2019-02-07 13:36 | Outpatient (CLI) | payer MEDICARE, BC ==
[~2019-02-07] VITALS: Ht 170.2 cm; Wt 64.9 kg
[2019-02-07] MEDS ORDERED: MULTI VITAMINS1 TAB PO (14:03)
[2019-02-07 14:04] VITALS: BP 127/50; PULSE 95; TEMP 98.4
== END 2019-02-07 15:47 | disposition home or self-care (01) ==
LOC: EUO 13:36
DX: J44.9 Chronic obstructive pulmonary disease, unspecified (principal); Z79.899 Other long term (current) drug therapy
CPT/HCPCS: J2182

== ENCOUNTER 2019-02-17 08:45 | Emergency (ER) | payer MEDICARE, BC ==
[~2019-02-17] VITALS: Ht 170.2 cm; Wt 67.3 kg
[~2019-02-17 08:45] MED LIST changes: +MULTI VITAMINS1 TAB PO
[2019-02-17 08:51] VITALS: TEMP 97.6
[2019-02-17 09:02] LABS: BASO % 0.4 % (0.0-2.0); EOS % 0.3 % (0-4.0); GRAN # 7.6 (1.4-6.5); GRAN % 70.9 % (42.2-75.2); HEMATOCRIT 40.3 % (37.0-47.0); LYMPH # 2.2 (1.2-3.4); LYMPH % 21.1 % (20.0-51.0); MEAN CELL VOLUME 87 fl (80.0-100.0); MEAN CORPUSCULAR HEMOGLOBIN 28 pg (27.0-31.0); MEAN CORPUSCULAR HGB CONC 32 g/dl (33.0-37.0); MEAN PLATELET VOLUME 9.6 fl (7.4-10.4); MONO # 0.7 (0.1-0.6); PLATELET COUNT 264 K/mm3 (130-400); RED BLOOD COUNT 4.62 M/mm3 (4.10-5.30); REDCELL DISTRIBUTION WIDTH-CV 12.8 % (11.5-14.5)
[2019-02-17 09:16] LABS: ALANINE AMINOTRANSFERASE < 6 U/L (9-52); ALBUMIN 3.8 gm/dL (3.5-5.0); ALKALINE PHOSPHATASE 81 U/L (50-136); ANION GAP 8 mmol/L (7-16); AST,SGOT 17 U/L (15-37); BILIRUBIN,TOTAL 0.6 mg/dL (0.0-1.0); BLOOD UREA NITROGEN 17 mg/dL (7-17); CALCIUM 9.8 mg/dL (8.4-10.2); CARBON DIOXIDE 27 mmol/L (22-30); CHLORIDE 105 mmol/L (98-107); CREATININE, serum 0.99 (0.52-1.25); GLUCOSE 111 mg/dL (74-106); POTASSIUM 4.2 mmol/L (3.4-5.0); SODIUM 140 mmol/L (137-145); TOTAL PROTEIN 7.2 gm/dL (6.4-8.2)
[2019-02-17 09:29] LABS: TROPONIN-I < 0.012 ng/mL (0.000-0.035)
[2019-02-17 09:43] VITALS: BP 117/62
[2019-02-17] MEDS ORDERED: PREDNISONE20 MG PO (10:09)
[2019-02-17] MEDS ORDERED: ZITHROMAX Z PA250 MG PO (11:29)
[2019-02-17 12:22] VITALS: PULSE 95
== END 2019-02-17 12:31 | disposition home or self-care (01) ==
LOC: COL.ER 08:45
PROVIDERS: Emergency Medicine
DX: J44.1 Chronic obstructive pulmonary disease with (acute) exacerbation (principal); F17.210 Nicotine dependence, cigarettes, uncomplicated; Z98.51 Tubal ligation status; Z90.710 Acquired absence of both cervix and uterus; Z79.02 Long term (current) use of antithrombotics/antiplatelets
CPT/HCPCS: A4216; J0696; J2930; J3475

== ENCOUNTER 2019-03-07 13:10 | Outpatient (CLI) | payer MEDICARE, BC ==
[~2019-03-07] VITALS: Ht 170.2 cm; Wt 65.0 kg
[2019-03-07 13:21] VITALS: BP 150/60; PULSE 93; TEMP 98.4
--- NOTE | 2019-03-07 14:10 | NUR ---
Pt amairani nucala well. Pt refused w/c, pt discharged per ambulation.
== END 2019-03-07 14:23 | disposition home or self-care (01) ==
LOC: EUO 13:10
DX: J44.9 Chronic obstructive pulmonary disease, unspecified (principal); Z79.899 Other long term (current) drug therapy
CPT/HCPCS: J2182

== ENCOUNTER 2019-04-04 13:13 | Outpatient (CLI) | payer MEDICARE, BC ==
[~2019-04-04] VITALS: Ht 170.2 cm; Wt 69.0 kg
[2019-04-04 13:58] VITALS: BP 150/67; PULSE 86; TEMP 97.9
== END 2019-04-04 14:09 | disposition home or self-care (01) ==
LOC: EUO 13:13
DX: J44.9 Chronic obstructive pulmonary disease, unspecified (principal); Z79.899 Other long term (current) drug therapy
CPT/HCPCS: J2182

== ENCOUNTER → 2019-04-30 | Outpatient (CLI) | payer MEDICARE, BC | LOC: MC.RAD 04-17 11:15 | DX: Z12.31 Encounter for screening mammogram for malignant neoplasm of breast (principal) ==

== ENCOUNTER 2019-05-30 12:44 | Outpatient (CLI) | payer MEDICARE, BC ==
[~2019-05-30] VITALS: Ht 170.2 cm; Wt 63.4 kg
[2019-05-30 13:54] VITALS: BP 135/59; PULSE 97; TEMP 98.2
== END 2019-05-30 14:26 | disposition home or self-care (01) ==
LOC: EUO 12:44
DX: J44.9 Chronic obstructive pulmonary disease, unspecified (principal); Z79.899 Other long term (current) drug therapy
CPT/HCPCS: J2182

== ENCOUNTER 2019-06-27 12:31 | Outpatient (CLI) | payer MEDICARE, BC ==
[~2019-06-27] VITALS: Ht 170.2 cm; Wt 63.0 kg
[2019-06-27 13:15] VITALS: BP 133/64; PULSE 88; TEMP 98
== END 2019-06-27 14:45 | disposition home or self-care (01) ==
LOC: EUO 12:31
DX: J44.9 Chronic obstructive pulmonary disease, unspecified (principal); Z79.899 Other long term (current) drug therapy
CPT/HCPCS: J2182

== ENCOUNTER → 2019-06-28 | Outpatient (CLI) | payer MEDICARE, BC | LOC: COL.PUL 09:41 | DX: J44.9 Chronic obstructive pulmonary disease, unspecified (principal) ==

== ENCOUNTER 2019-07-09 09:25 | Emergency (ER) | payer MEDICARE, BC ==
[~2019-07-09] VITALS: Ht 170.2 cm; Wt 63.6 kg
[2019-07-09 10:15] LABS: BASO % 0.3 % (0.0-2.0); GRAN # 4.4 (1.4-6.5); HEMOGLOBIN 11.9 g/dl (12.5-16.0); LYMPH # 1.4 (1.2-3.4); LYMPH % 20.1 % (20.0-51.0); MEAN CELL VOLUME 87 fl (80.0-100.0); MEAN CORPUSCULAR HEMOGLOBIN 28 pg (27.0-31.0); MEAN CORPUSCULAR HGB CONC 32 g/dl (33.0-37.0); MEAN PLATELET VOLUME 9.6 fl (7.4-10.4); MONO % 14.3 % (1.7-9.3); PLATELET COUNT 272 K/mm3 (130-400); RED BLOOD COUNT 4.23 M/mm3 (4.10-5.30); REDCELL DISTRIBUTION WIDTH-CV 12.8 % (11.5-14.5)
[2019-07-09 10:20] LABS: HEMATOCRIT 36.7 % (37.0-47.0)
[2019-07-09 10:28] LABS: ALANINE AMINOTRANSFERASE 9 U/L (9-52); ALBUMIN 3.8 gm/dL (3.5-5.0); ALKALINE PHOSPHATASE 96 U/L (50-136); ANION GAP 7 mmol/L (7-16); AST,SGOT 20 U/L (15-37); BILIRUBIN,TOTAL 0.3 mg/dL (0.0-1.0); BLOOD UREA NITROGEN 18 mg/dL (7-17); CALCIUM 9.6 mg/dL (8.4-10.2); CARBON DIOXIDE 26 mmol/L (22-30); CHLORIDE 100 mmol/L (98-107); CREATININE, serum 1.07 (0.52-1.25); GLUCOSE 94 mg/dL (74-106); POTASSIUM 3.9 mmol/L (3.4-5.0); SODIUM 134 mmol/L (137-145); TOTAL PROTEIN 7.5 gm/dL (6.4-8.2)
[2019-07-09 10:41] LABS: TROPONIN-I < 0.012 ng/mL (0.000-0.035)
[2019-07-09] MEDS ORDERED: PREDNISONE20 MG PO (13:45)
[2019-07-09] MEDS ORDERED: LEVAQUIN 5500 MG/TA1 PO (13:45)
[2019-07-09 14:15] VITALS: BP 131/65; PULSE 108; TEMP 98.7
== END 2019-07-09 14:15 | disposition home or self-care (01) ==
LOC: COL.ER 09:25
PROVIDERS: Physician Assistant
DX: J44.1 Chronic obstructive pulmonary disease with (acute) exacerbation (principal); I10 Essential (primary) hypertension; Z90.710 Acquired absence of both cervix and uterus; Z98.890 Other specified postprocedural states; Z98.51 Tubal ligation status; Z87.891 Personal history of nicotine dependence; Z79.02 Long term (current) use of antithrombotics/antiplatelets
CPT/HCPCS: J2930; J7030

== ENCOUNTER 2019-07-25 13:20 | Outpatient (CLI) | payer MEDICARE, BC ==
[~2019-07-25] VITALS: Ht 170.2 cm; Wt 65.0 kg
[2019-07-25 14:21] VITALS: BP 140/59; PULSE 88; TEMP 98.1
[2019-07-25] MEDS ORDERED: PREDNISONE1 MG PO (14:21)
== END 2019-07-25 14:54 | disposition home or self-care (01) ==
LOC: EUO 13:20
DX: J44.9 Chronic obstructive pulmonary disease, unspecified (principal); Z79.899 Other long term (current) drug therapy
CPT/HCPCS: J2182

== ENCOUNTER 2019-08-21 11:38 | Outpatient (CLI) | payer MEDICARE, BC ==
[~2019-08-21] VITALS: Ht 170.2 cm; Wt 64.6 kg
[~2019-08-21 11:38] MED LIST changes: +PREDNISONE1 MG PO
[2019-08-21 12:01] VITALS: BP 171/76; PULSE 92; TEMP 97.4
== END 2019-08-21 12:14 | disposition home or self-care (01) ==
LOC: EUO 11:38
DX: J44.9 Chronic obstructive pulmonary disease, unspecified (principal); Z79.899 Other long term (current) drug therapy
CPT/HCPCS: J2182

== ENCOUNTER 2019-08-30 16:01 | Inpatient (IN) | payer MEDICARE, BC ==
[~2019-08-30] VITALS: Ht 170.2 cm; Wt 69.8 kg
[2019-08-30 17:14] LABS: COLLECTION METHOD CLEAN CATCH
[2019-08-30 17:19] LABS: HEMOGLOBIN 11.6 g/dl (12.5-16.0); MEAN CELL VOLUME 88 fl (80.0-100.0); MEAN CORPUSCULAR HEMOGLOBIN 28 pg (27.0-31.0); MEAN CORPUSCULAR HGB CONC 32 g/dl (33.0-37.0); MEAN PLATELET VOLUME 10.1 fl (7.4-10.4); PLATELET COUNT 291 K/mm3 (130-400); RED BLOOD COUNT 4.11 M/mm3 (4.10-5.30); REDCELL DISTRIBUTION WIDTH-CV 13.7 % (11.5-14.5)
[2019-08-30 17:22] LABS: HEMATOCRIT 36.1 % (37.0-47.0)
[2019-08-30 17:23] LABS: INR 1.3 (0.8-3.0)
[2019-08-30 17:26] LABS: MUCOUS Present /lpf; PARTIAL THROMBOPLASTIN TIME 38.1 SECONDS (26.0-37.0); PH 5 (5-8); SQUAMOUS EPITHELIAL 0-2 /hpf; URINE APPEARANCE Hazy; URINE BACTERIA None Seen /hpf; URINE BILIRUBIN Negative (NEGATIVE); URINE BLOOD Negative (NEGATIVE); URINE COLOR Amber; URINE GLUCOSE Negative (NEGATIVE); URINE KETONE Negative (NEGATIVE); URINE LEUKOCYTE ESTERASE 1+ (NEGATIVE); URINE NITRATE Negative (NEGATIVE); URINE PROTEIN(semi-quant) 2+ (NEGATIVE); URINE UROBILINOGEN >=4.0 mg/dL (NEGATIVE)
[2019-08-30 17:38] LABS: ALANINE AMINOTRANSFERASE < 6 U/L (9-52); ALBUMIN 3.9 gm/dL (3.5-5.0); ALKALINE PHOSPHATASE 105 U/L (50-136); ANION GAP 11 mmol/L (7-16); AST,SGOT 18 U/L (15-37); BILIRUBIN,TOTAL 0.6 mg/dL (0.0-1.0); BLOOD UREA NITROGEN 34 mg/dL (7-17); CALCIUM 9.1 mg/dL (8.4-10.2); CARBON DIOXIDE 24 mmol/L (22-30); CHLORIDE 102 mmol/L (98-107); CREATININE, serum 1.96 (0.52-1.25); GLUCOSE 118 mg/dL (74-106); POTASSIUM 3.7 mmol/L (3.4-5.0); SODIUM 138 mmol/L (137-145); TOTAL PROTEIN 7.6 gm/dL (6.4-8.2)
[2019-08-30 17:47] LABS: TROPONIN-I < 0.012 ng/mL (0.000-0.035)
[2019-08-30 18:05] LABS: C-REACTIVE PROTEIN 40.5 mg/dL (0.0-0.9)
[2019-08-30 18:26] LABS: BAND 1 % (0-10); LYMPHOCYTE 6 % (20.0-51.0); NEUTROPHILS 86 % (42.0-75.2); PLATELET ESTIMATE NORMAL (NORMAL)
[2019-08-30 21:19] VITALS: BP 119/52; PULSE 88; TEMP 98.9
[2019-08-30 23:06] VITALS: BP 107/42; PULSE 74; TEMP 981
--- NOTE | 2019-08-31 02:28 | NUR ---
Patient to the floor at about 2014. Daughter at bedside. Patient noted to be short of breathe and purses lips at times. States she is feeling a lot better than when she first came into the ER. Educated on sputum culture and this was obtained and sent to lab. Sputum noted to be dark green in color. Patient requested something to help her sore throat. Chloraseptic spray order given by Denise Chance. Patient wearing oxygen at 2L nasal cannula. Swab for respiratory virus panel obtained and sent to lab. IVF infusing. Patient requested new IV site and 20G placed in left forearm. INT to right AC discontinued per patient request. Denies any further needs. 5 page and med rec completed.
[2019-08-31 04:56] VITALS: BP 112/47; PULSE 98; TEMP 99.2
[2019-08-31 06:42] LABS: BASO % 0.2 % (0.0-2.0); EOS % 0.1 % (0-4.0); GRAN # 11.8 (1.4-6.5); GRAN % 83.8 % (42.2-75.2); LYMPH # 1.1 (1.2-3.4); MEAN CELL VOLUME 89 fl (80.0-100.0); MEAN CORPUSCULAR HGB CONC 33 g/dl (33.0-37.0); MONO % 7.3 % (1.7-9.3); PLATELET COUNT 241 K/mm3 (130-400); RED BLOOD COUNT 3.31 M/mm3 (4.10-5.30); REDCELL DISTRIBUTION WIDTH-CV 13.8 % (11.5-14.5)
[2019-08-31 06:51] LABS: HEMATOCRIT 29.4 % (37.0-47.0); HEMOGLOBIN 9.6 g/dl (12.5-16.0); MEAN CORPUSCULAR HEMOGLOBIN 29 pg (27.0-31.0)
[2019-08-31 07:02] LABS: ALBUMIN 2.8 gm/dL (3.5-5.0); BILIRUBIN,TOTAL 0.5 mg/dL (0.0-1.0); CREATININE, serum 1.33 (0.52-1.25); POTASSIUM 3.7 mmol/L (3.4-5.0); TOTAL PROTEIN 5.9 gm/dL (6.4-8.2)
[2019-08-31 07:21] VITALS: BP 123/49; PULSE 97; TEMP 99.7
--- NOTE | 2019-08-31 07:51 | NUR ---
PATIENT ASSESSMENT COMPLETED. SHE DENIES ANY PAIN BUT DOES FEEL SHORT OF BREATH. SHE WILL SIT UP AT THE SIDE OF THE BED FOR BREAKFAST. NO OTHER NEEDS AT THIS TIME.
--- NOTE | 2019-08-31 09:49 | NUR ---
patient requested a breathing treatment. RT is notified and they are coming to provide this.
[2019-08-31 11:10] VITALS: BP 120/48; PULSE 92; TEMP 98.7
--- NOTE | 2019-08-31 11:12 | NUR ---
PRN TYLENOL GIVEN FOR COMPLAINTS OF BODY ACHY ALL OVER. NO OTHER NEEDS AT THIS TIME
[2019-08-31 15:38] VITALS: BP 123/48; PULSE 89; TEMP 98.9
--- NOTE | 2019-08-31 18:44 | NUR ---
PATIENT RESTING IN BED WITH FAMILY AT BEDSIDE. SHE DENIES ANY NEEDS AT THIS TIME. DIDN'T WANT TO EAT ANYMORE SUPPER, IT WAS TO HARD TO CHEW.
[2019-08-31 19:20] VITALS: BP 155/44; PULSE 94; TEMP 98.8
[2019-08-31 23:37] VITALS: BP 154/70; PULSE 100; TEMP 98.5
--- NOTE | 2019-09-01 01:22 | NUR ---
Patient has rested well throughout the night. Continues to cough up green sputum. Requests Tylenol for generalized ache d/t coughing. Administered and effective. Continues on 2L O2 via nasal cannula. Denies any further needs. Will continue to monitor patient.
[2019-09-01 02:57] VITALS: BP 139/68; PULSE 100; TEMP 98
[2019-09-01 08:40] VITALS: BP 177/64; PULSE 108; TEMP 98.6
--- NOTE | 2019-09-01 09:00 | NUR ---
Medicated with Tylenol for c/o pain with coughing. O2 on per nasal cannula. RT treatment given. Complained of feeling cold and then hot frequently.
[2019-09-01 10:44] LABS: BASO % 0.2 % (0.0-2.0); EOS % 0.2 % (0-4.0); GRAN # 8.5 (1.4-6.5); GRAN % 85.4 % (42.2-75.2); LYMPH # 0.7 (1.2-3.4); LYMPH % 7.3 % (20.0-51.0); MEAN CELL VOLUME 88 fl (80.0-100.0); MEAN CORPUSCULAR HGB CONC 32 g/dl (33.0-37.0); MEAN PLATELET VOLUME 9.8 fl (7.4-10.4); MONO # 0.6 (0.1-0.6); MONO % 6.4 % (1.7-9.3); PLATELET COUNT 263 K/mm3 (130-400); RED BLOOD COUNT 3.42 M/mm3 (4.10-5.30); REDCELL DISTRIBUTION WIDTH-CV 13.9 % (11.5-14.5)
[2019-09-01 10:49] LABS: CALCIUM 8.1 mg/dL (8.4-10.2); CREATININE, serum 0.77 (0.52-1.25); POTASSIUM 3.6 mmol/L (3.4-5.0)
[2019-09-01 10:55] LABS: HEMATOCRIT 30.2 % (37.0-47.0); HEMOGLOBIN 9.6 g/dl (12.5-16.0); MEAN CORPUSCULAR HEMOGLOBIN 28 pg (27.0-31.0)
[2019-09-01 13:09] VITALS: BP 130/63; PULSE 95; TEMP 98.7
[2019-09-01 16:00] VITALS: BP 152/68; PULSE 95; TEMP 99
--- NOTE | 2019-09-01 19:00 | NUR ---
ESTHETICIAN PERMANENT MAKEUP ARTIST notified of patient c/o intermittent sharp pain in left ribs. Denied shortness of breath. States pain worse when trying to get up. Family at bedside.
[2019-09-01 19:16] VITALS: BP 143/69; PULSE 97; TEMP 98
--- NOTE | 2019-09-01 21:42 | NUR ---
Patient doing ok. Alert and oriented with VSS. Does well without oxygen, 02 sats running at 96 without it so took it off. Denies chest pain or SOB. PM meds given with no issues. Does have ins wheezes throughout. Denies pain in left side of ribs as of now. No other concerns. Call light within reach, will continue to monitor
[2019-09-02] VITALS (8 sets, daily range): BP systolic 128–159; BP diastolic 48–83; PULSE 88–104; TEMP 97.5–99.4
--- NOTE | 2019-09-02 02:55 | NUR ---
Pt c/o left sided rib pain. Rated at 10. Resp came in with breathing tx. Pt states she feels better. PRn morphine and cough medicine given. Pt now rates pain 7. Laying in bed. Denies needs at this time. Call light within reach, will continue to monitor.
--- NOTE | 2019-09-02 06:04 | NUR ---
Pt is resting in bed. States she feels better and is not having the left sided rib pain anymore. Does c/o pain in her L hand that is int. States she does have arthritis. Offered tylenol but stated it does not help. will see about getting an order for nsaid
[2019-09-02 08:26] LABS: BASO % 0.2 % (0.0-2.0); EOS % 0.2 % (0-4.0); GRAN # 6.7 (1.4-6.5); GRAN % 74.5 % (42.2-75.2); LYMPH # 1.3 (1.2-3.4); LYMPH % 14.6 % (20.0-51.0); MEAN CELL VOLUME 88 fl (80.0-100.0); MEAN CORPUSCULAR HGB CONC 32 g/dl (33.0-37.0); MEAN PLATELET VOLUME 9.3 fl (7.4-10.4); MONO # 0.9 (0.1-0.6); MONO % 9.9 % (1.7-9.3); PLATELET COUNT 286 K/mm3 (130-400); RED BLOOD COUNT 3.26 M/mm3 (4.10-5.30); REDCELL DISTRIBUTION WIDTH-CV 13.9 % (11.5-14.5)
[2019-09-02 08:28] LABS: HEMATOCRIT 28.8 % (37.0-47.0); HEMOGLOBIN 9.2 g/dl (12.5-16.0); MEAN CORPUSCULAR HEMOGLOBIN 28 pg (27.0-31.0)
[2019-09-02 08:35] LABS: CALCIUM 8.5 mg/dL (8.4-10.2); CREATININE, serum 0.78 (0.52-1.25); POTASSIUM 3.7 mmol/L (3.4-5.0)
--- NOTE | 2019-09-02 09:39 | NUR ---
PATIENT IS SITTING UP IN BED WITH FAMILY PRESENT AT THE BEDSIDE. PATIENT IS DROWSY THIS AM, BUT IS A&OX4. TACHYCARDIA AND TEMPURATURE OF 99.1 NOTED, VSS. TELE IN PLACE. SHALLOW BREATHING NOTED, PATIENT STATES THAT SHE FEELS SOB. UPPER LUNG HERRERA CLAR UPON AUSCULTATION. LUNG BASES DIMINISHED BILATERALLY. O2 IN PLACE VIA NASAL CANNULA. PATIENT HAS A PRODUCTIVE COUGH. UPPER ABDOMINAL QUADRANTS HYPOACTIVE. LOWER ABDOMINAL QUADRANTS ACTIVE. PATIENT REPORTS HAVING A POOR APPETITE. PATIENT GIVEN PRN PO TYLENOL FOR TEMPURATURE AND CODEINE SYRUP FOR COUGH. CALL LIGHT WITHIN REACH. WILL CONTINUE TO MONITOR.
--- NOTE | 2019-09-02 11:13 | NUR ---
STEVEN met with the patient and the patient's daughter, Diane to discuss a discharge plan. The patient lives in [place] with Diane. The patient has a shower chair, step in shower and no other DME and patient reports independence with ADLs. The patient's PCP is Dr. Latrice Juarez and patient receives medications from [facility] with no difficulties. The patient does not have advanced directives in the EMR but reports they are completed and designate Diane. Physical therapy recommends home and the patient plans to return home upon discharge. health services rn will continue to follow to ensure a safe discharge.
--- NOTE | 2019-09-02 19:19 | NUR ---
REPORT GIVEN TO BARBARA HENRIQUEZ.
--- NOTE | 2019-09-02 20:00 | NUR ---
UP TO BATHROOM, DURING SHIFT CHANGE REPORT FROM DAY SHIFT NURSE. REPORTS SHORT OF BREATHE WITH EXERTION AND PAIN TO LEFT RIBS FROM COUGHING UP SPUTUM AT TIMES, REPORTS SOMETIMES CANNOT COUGH UP SPUTUM. OBSERVED NO SPUTUM AT THIS TIME. CONTACT ISOLATION CONTINUES. ENCOURAGED TO INCREASE ORAL NUTRITIONAL INTAKE IF TOLERABLE.
--- NOTE | 2019-09-02 22:30 | NUR ---
RESTING QUIETLY, WATCHING TV, DENIES ANY NEEDS AT THIS TIME.
--- NOTE | 2019-09-03 00:26 | NUR ---
RESTING WITH EYES CLOSED, BREATHING EVEN AND NONLABORED. DOES NOT AWAKEN WHEN DOOR OPENED AND ROOM ENTERED.
--- NOTE | 2019-09-03 01:10 | NUR ---
Resting with eyes closed, awakens when room entered, battery changed to tele box. No other needs reported when asked. Breathing nonlabored and even.
[2019-09-03 04:28] VITALS: BP 156/63; PULSE 86; TEMP 98.8
--- NOTE | 2019-09-03 07:19 | NUR ---
Patient resting in bed during shift change report given to day shift nurse.
[2019-09-03 07:28] VITALS: BP 140/53; PULSE 90; TEMP 99.3
--- NOTE | 2019-09-03 09:00 | NUR ---
Dr Ramos here to see patient.
--- NOTE | 2019-09-03 09:30 | NUR ---
Patient alert and oriented, answers questions appropriately. See assessment. Lungs with ex/in scattered wheezes noted in upper lobes, coarse in lower lobes. Lung sounds improve with cough, no use of accessory muscles noted. Oxygen at 1l/nc. Thin green mucous noted with cough. Patient c/o increased cough and general pain. No other c/o at this time.
[2019-09-03 10:36] LABS: BASO % 0.4 % (0.0-2.0); EOS % 0.4 % (0-4.0); GRAN # 5.4 (1.4-6.5); GRAN % 67.8 % (42.2-75.2); LYMPH # 1.5 (1.2-3.4); LYMPH % 19.3 % (20.0-51.0); MEAN CELL VOLUME 89 fl (80.0-100.0); MEAN CORPUSCULAR HGB CONC 32 g/dl (33.0-37.0); MEAN PLATELET VOLUME 9.8 fl (7.4-10.4); MONO # 0.9 (0.1-0.6); MONO % 11.3 % (1.7-9.3); PLATELET COUNT 310 K/mm3 (130-400); RED BLOOD COUNT 3.22 M/mm3 (4.10-5.30); REDCELL DISTRIBUTION WIDTH-CV 14.2 % (11.5-14.5)
[2019-09-03 10:41] LABS: HEMATOCRIT 28.6 % (37.0-47.0); HEMOGLOBIN 9.1 g/dl (12.5-16.0); MEAN CORPUSCULAR HEMOGLOBIN 28 pg (27.0-31.0)
[2019-09-03 10:45] LABS: CALCIUM 8.8 mg/dL (8.4-10.2); CREATININE, serum 0.67 (0.52-1.25); POTASSIUM 3.4 mmol/L (3.4-5.0)
[2019-09-03 11:53] VITALS: BP 141/60; PULSE 86; TEMP 98.7
--- NOTE | 2019-09-03 15:37 | NUR ---
Dr Lyons here to see patient, see orders.
[2019-09-03 15:40] VITALS: BP 146/50; PULSE 90; TEMP 99
--- NOTE | 2019-09-03 18:13 | NUR ---
Attempted x1 to notify Dr Mcneal of consult.
--- NOTE | 2019-09-03 20:00 | NUR ---
Report received. 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 A&Ox3. Assessment complete. VS stable. Rating pain 3/10 to left side rib area-states its an intermittent ache with coughing. Denies need for intervention. Short of breath with exertion-oxygen saturation 98% on 1L/NC. Denies nausea. NS@50mls/hr to left wrist. Plan of care discussed for night shift manager. Denies questions or concerns. Will monitor.
[2019-09-03 21:38] VITALS: BP 156/71; PULSE 102; TEMP 99.1
[2019-09-04] VITALS (7 sets, daily range): BP systolic 128–161; BP diastolic 62–89; PULSE 78–120; TEMP 97.9–99.5
[2019-09-04 08:06] LABS: BASO % 0.2 % (0.0-2.0); EOS % 0.4 % (0-4.0); GRAN # 7.6 (1.4-6.5); GRAN % 76.1 % (42.2-75.2); LYMPH # 1.4 (1.2-3.4); LYMPH % 14.4 % (20.0-51.0); MEAN CELL VOLUME 89 fl (80.0-100.0); MEAN CORPUSCULAR HGB CONC 32 g/dl (33.0-37.0); MEAN PLATELET VOLUME 9.5 fl (7.4-10.4); MONO # 0.8 (0.1-0.6); MONO % 7.9 % (1.7-9.3); PLATELET COUNT 373 K/mm3 (130-400); RED BLOOD COUNT 3.33 M/mm3 (4.10-5.30); REDCELL DISTRIBUTION WIDTH-CV 14.4 % (11.5-14.5)
[2019-09-04 08:20] LABS: HEMATOCRIT 29.7 % (37.0-47.0); HEMOGLOBIN 9.4 g/dl (12.5-16.0); MEAN CORPUSCULAR HEMOGLOBIN 28 pg (27.0-31.0)
[2019-09-04 08:27] LABS: CALCIUM 9.3 mg/dL (8.4-10.2); CREATININE, serum 0.66 (0.52-1.25); POTASSIUM 3.4 mmol/L (3.4-5.0)
--- NOTE | 2019-09-04 10:00 | NUR ---
Patient alert and oriented, answers questions appropriately. See assessment. Lungs decreased in bases, clear in upper lobes. No use of accessory muscles for breathing noted. Oxygen per oxymask at 3l. No c/o at this time.
[2019-09-04 10:18] LABS: ARTERIAL BLD GAS O2 SATURATION 96.3 % (92-100); ARTERIAL BLD GAS TCO2 CT 27.6; ARTERIAL BLOOD GAS HCO3 26.4 meq/L (22-26); ARTERIAL BLOOD GAS PCO2 40.4 mmHg (35-45); ARTERIAL BLOOD GAS PO2 82.5 mmHg (80-100); ARTERIAL BLOOD GAS pH 7.43 (7.35-7.45)
--- NOTE | 2019-09-04 20:00 | NUR ---
Report received. 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 A&Ox3. VS stable. Assessment complete. O2@2L/NC via oximask-pursed lip breathing with O2 saturation @ 94%. INT to left wrist-flushes without difficulty. Denies pain/nausea. Plan of care discussed for this shift to include pain management, calling for needs/concerns-increase in shortness of breath. Verbalizes understanding. Denies current needs. Will monitor.
[2019-09-05] VITALS (7 sets, daily range): BP systolic 107–130; BP diastolic 52–77; PULSE 77–123; TEMP 98.4–100.6
--- NOTE | 2019-09-05 08:00 | NUR ---
Patient resting in bed at this time. Patient rouses easily, denies pain at this time. Assisted patient to bedside commode where she was continent of bowel and bladder. Patient assisted back to bed and denies further needs at this time. Oxymask in place per order, patient SOA with exertion. Call light within reach.
[2019-09-05 08:38] LABS: BASO % 0.3 % (0.0-2.0); EOS % 0.1 % (0-4.0); GRAN # 9.5 (1.4-6.5); GRAN % 79.3 % (42.2-75.2); LYMPH # 1.4 (1.2-3.4); LYMPH % 11.9 % (20.0-51.0); MEAN CELL VOLUME 90 fl (80.0-100.0); MEAN CORPUSCULAR HGB CONC 32 g/dl (33.0-37.0); MEAN PLATELET VOLUME 9.8 fl (7.4-10.4); MONO # 0.9 (0.1-0.6); MONO % 7.8 % (1.7-9.3); PLATELET COUNT 427 K/mm3 (130-400); RED BLOOD COUNT 3.49 M/mm3 (4.10-5.30); REDCELL DISTRIBUTION WIDTH-CV 14.4 % (11.5-14.5)
[2019-09-05 08:40] LABS: HEMATOCRIT 31.3 % (37.0-47.0); HEMOGLOBIN 9.9 g/dl (12.5-16.0); MEAN CORPUSCULAR HEMOGLOBIN 28 pg (27.0-31.0)
[2019-09-05 08:51] LABS: CALCIUM 9.4 mg/dL (8.4-10.2); CREATININE, serum 0.7 (0.52-1.25); POTASSIUM 3.4 mmol/L (3.4-5.0)
--- NOTE | 2019-09-05 14:41 | NUR ---
Vancomycin Initial Dosing Pharmacy Note Ordering provider: Edilberto Lyons MD Indication/duration: continued pneumonia/fevers, 7 days Relevant comorbidities: COPD LABS: SCr 0.7, CrCl~45, GFR 97 Recommendation: Will give Vancomycin 1.25 gm IV x1 loading dose, then Vancomycin 1 gm IV q12h. Pharmacy will continue to monitor and check a Vancomycin trough on 09/07/19. Loading dose: 1.25 grams Maintenance dose: 1 gram every 12 hours Trough goal: 15-20 ug/mL
--- NOTE | 2019-09-05 17:53 | NUR ---
Patient resting in bed eating dinner at this time, family at bedside. Patient remains alert and oriented, continues to deny pain or needs. Worley in place per order. Call light within reach.
[2019-09-06 03:58] VITALS: BP 122/62; PULSE 105; TEMP 99
--- NOTE | 2019-09-06 07:11 | NUR ---
Patient has rested well throughout the night. Continues to cough. Lung sounds diminished throughout. Medications administered as ordered. Patient denies needs throughout the night. Reported of to BARBARA Moore.
[2019-09-06 07:41] LABS: BASO % 0.2 % (0.0-2.0); EOS % 0.2 % (0-4.0); GRAN # 10.2 (1.4-6.5); GRAN % 77.7 % (42.2-75.2); HEMATOCRIT 30.1 % (37.0-47.0); HEMOGLOBIN 9.3 g/dl (12.5-16.0); LYMPH # 1.6 (1.2-3.4); LYMPH % 12.3 % (20.0-51.0); MEAN CELL VOLUME 90 fl (80.0-100.0); MEAN CORPUSCULAR HEMOGLOBIN 28 pg (27.0-31.0); MEAN CORPUSCULAR HGB CONC 31 g/dl (33.0-37.0); MEAN PLATELET VOLUME 9.3 fl (7.4-10.4); MONO # 1.1 (0.1-0.6); MONO % 8.5 % (1.7-9.3); PLATELET COUNT 412 K/mm3 (130-400); RED BLOOD COUNT 3.36 M/mm3 (4.10-5.30); REDCELL DISTRIBUTION WIDTH-CV 14.6 % (11.5-14.5)
[2019-09-06 07:54] LABS: ALBUMIN 2.9 gm/dL (3.5-5.0); BILIRUBIN,TOTAL 0.3 mg/dL (0.0-1.0); CALCIUM 9.3 mg/dL (8.4-10.2); CREATININE, serum 1.29 (0.52-1.25); POTASSIUM 3.4 mmol/L (3.4-5.0); TOTAL PROTEIN 6.3 gm/dL (6.4-8.2)
[2019-09-06 08:17] VITALS: BP 113/50; PULSE 102; TEMP 99.4
--- NOTE | 2019-09-06 08:54 | NUR ---
Vancomycin Follow-up Pharmacy Note Current regimen: Vancomycin 1 gm IV q12h Adjustments: Will decrease Vancomycin to 1 gm IV q24h as SCr increased to 1.29 from 0.7 (CrCl~28, GFR 47). Pharmacy will continue to monitor and check a Vancomycin trough on 08/28/19.
--- NOTE | 2019-09-06 09:00 | NUR ---
Patient resting in bed at this time. Patient is alert and oriented but appears weak. Patient has declined her breakfast and has not drank the ensure open on the bedside table, when asked if there was anything she preferred, she stated that she just didn't have an appetite. Worley remains in place per order at this time, draining cloudy yellow urine. Patient on 1.5L via oxymask. Patient denies pain or needs at this time, call light within reach.
--- NOTE | 2019-09-06 09:00 | NUR ---
Patient resting in bed at this time, patient is alert and oriented, answers questions appropriately. Patient is weak, but is able to take her medications with no problems. Worley in place per order. Patient denies pain or needs at this time.
--- NOTE | 2019-09-06 10:12 | NUR ---
STEVEN contacted the patient's dadeandretherDiane via telephone to discuss a possible intermediate stay. The patient's daughter reports she will be here at the hospital later this day and will discuss placement at that time. STEVEN will continue to follow.
--- NOTE | 2019-09-06 11:17 | NUR ---
STEVEN met with the patient's daughter, Diane. She reports that she was not interested in post acute rehab but was open to home health services. Diane reports that the patient has a basement room right by the gargage and is easy to get into. Diane is not employed and stays home with the patient. STEVEN presented Medicare.gov's list of home health agencies. STEVEN will continue to follow.
[2019-09-06 12:30] VITALS: BP 172/93; PULSE 125; TEMP 99.7
--- NOTE | 2019-09-06 14:40 | NUR ---
[facility] was selected. STEVEN faxed referral to [facility].
--- NOTE | 2019-09-06 15:23 | NUR ---
Ant from [facility] reports they can accept the patient for home health services once the patient discharges. human services worker will continue to follow.
[2019-09-06 16:55] VITALS: BP 159/91; PULSE 114; TEMP 99.9
--- NOTE | 2019-09-06 17:43 | NUR ---
Barney catheter removed per order. 10 ml of water removed from balloon, barney tip and balloon removed intact. Patient tolerated procedure well. Patient denies pain or needs at this time. Assisted patient to bedside commode, call light within reach.
[2019-09-06 19:39] VITALS: BP 135/62; PULSE 63; TEMP 98.9
--- NOTE | 2019-09-06 19:51 | NUR ---
Sitting up in bed with eyes open. Having pain in bilat hands and feet. Will administer Tylenol as prescribed at this time. Daughter in room with the patient. Patient denies further needs at this time.
[2019-09-06 23:49] VITALS: BP 119/52; PULSE 97; TEMP 100
--- NOTE | 2019-09-07 | NUR ---
Lying in bed with eyes open. Says that her pain in her hands and feet is better. Explains that she has arthritis in her hands and feet and it acts up at time causing her some pain. Patient requests her applesauce be moved closer to her as she is going to try to eat some of it. Patient denies further needs at this time.
[2019-09-07 01:08] VITALS: TEMP 99.2
[2019-09-07 03:35] VITALS: BP 110/55; PULSE 102; TEMP 99.4
--- NOTE | 2019-09-07 03:37 | NUR ---
Lying in bed with eyes open. Says that she is exhausted feeling. Patient complains of soreness in arms and legs when moved. Repositioned in the bed. Patient denies need to urinate at this time. Denies further needs.
[2019-09-07 07:25] VITALS: BP 129/62; PULSE 109; TEMP 98.2
--- NOTE | 2019-09-07 08:00 | NUR ---
Patient in bed resting. Alert and oriented x 3. Shift assessment complete. Small blisters to buttock noted. States pain/aching to hands and feet. On 1L via NC. Refuses breakfast this AM, encouraged increase intake. Encouraged patient to increase activity. Denies further needs at this time.
[2019-09-07 09:08] LABS: BASO % 0.3 % (0.0-2.0); EOS # 0.1 (0.0-0.7); EOS % 0.4 % (0-4.0); GRAN # 8.6 (1.4-6.5); GRAN % 76.1 % (42.2-75.2); LYMPH # 1.6 (1.2-3.4); LYMPH % 14.5 % (20.0-51.0); MEAN CELL VOLUME 91 fl (80.0-100.0); MEAN CORPUSCULAR HGB CONC 31 g/dl (33.0-37.0); MEAN PLATELET VOLUME 9.4 fl (7.4-10.4); MONO # 0.9 (0.1-0.6); MONO % 8.1 % (1.7-9.3); PLATELET COUNT 410 K/mm3 (130-400); RED BLOOD COUNT 2.98 M/mm3 (4.10-5.30); REDCELL DISTRIBUTION WIDTH-CV 14.8 % (11.5-14.5)
[2019-09-07 09:10] LABS: HEMATOCRIT 27.1 % (37.0-47.0); HEMOGLOBIN 8.4 g/dl (12.5-16.0); MEAN CORPUSCULAR HEMOGLOBIN 28 pg (27.0-31.0)
[2019-09-07 09:18] LABS: CALCIUM 9.2 mg/dL (8.4-10.2); CREATININE, serum 1.55 (0.52-1.25); POTASSIUM 4.2 mmol/L (3.4-5.0)
[2019-09-07 11:42] VITALS: BP 114/54; PULSE 80; TEMP 98.3
--- NOTE | 2019-09-07 14:32 | NUR ---
STEVEN followed up with patient, whose dauterswere at her bedside. SW discussed IM sheet that disclosed rights of benefits. Patient indicated that they will review form, sign it and leave it on the sink for SW to pickers material handlers tomorrow. Received word of possible discharge on monday.
--- NOTE | 2019-09-07 14:50 | NUR ---
Patient up to recliner, x 1 assist with walker. Denies further needs at this time.
[2019-09-07 16:08] VITALS: BP 112/57; PULSE 96; TEMP 97.8
--- NOTE | 2019-09-07 18:27 | NUR ---
Patient has done well throughout the day. Encouraged fluid intake and increased ambulation. Patient states soreness to hands and feet, refuses pain medications at this time. Family at bedside. Denies further needs at this time. Will report off to shift leader.
--- NOTE | 2019-09-07 20:00 | NUR ---
PT UP TO BSC. 2:1 ASSIST RETURN TO BED. VERY FRAIL AND WEAK. A&O. DYSPNEA WITH EXERTION. O2 UP 2LNC. O2 SAT 91%. NOTIFIED RT THAT PT NEEDS SVN TX WHEN TIME. RT WRIST AREA SWOLLEN D/T ARTHRITIS- PAINFUL. SEE MAR FOR TYLENOL GIVEN. RT ARM UP ON PILLOW. DAUGHTERS HERE EARLIER. VERY SUPPORTIVE. THEY REQUEST NOT TO USE BED DOMÍNGUEZ. ENC MORE ACTIVITY. CALL LIGHT IN REACH. BED ALARM SET.
[2019-09-07 20:59] VITALS: BP 96/51; PULSE 93; TEMP 98.1
[2019-09-08 00:30] VITALS: BP 102/48; PULSE 87; TEMP 98.4
--- NOTE | 2019-09-08 02:00 | NUR ---
PT C/O INCREASED RT WRIST ARTHRITIS PAIN. PT RELATES DISCOMFORT USUALLY DOESNT GET THIS BAD. SEE MAR FOR TYLENOL GIVEN.
[2019-09-08 05:11] VITALS: BP 103/56; PULSE 91; TEMP 98.1
[2019-09-08 07:01] LABS: BASO % 0.1 % (0.0-2.0); EOS # 0.1 (0.0-0.7); EOS % 0.6 % (0-4.0); GRAN # 5.5 (1.4-6.5); GRAN % 69.6 % (42.2-75.2); LYMPH # 1.8 (1.2-3.4); LYMPH % 22.4 % (20.0-51.0); MEAN CELL VOLUME 91 fl (80.0-100.0); MEAN CORPUSCULAR HGB CONC 30 g/dl (33.0-37.0); MEAN PLATELET VOLUME 9.6 fl (7.4-10.4); MONO # 0.5 (0.1-0.6); MONO % 6.9 % (1.7-9.3); PLATELET COUNT 417 K/mm3 (130-400); RED BLOOD COUNT 2.86 M/mm3 (4.10-5.30); REDCELL DISTRIBUTION WIDTH-CV 14.7 % (11.5-14.5)
[2019-09-08 07:03] LABS: HEMOGLOBIN 7.9 g/dl (12.5-16.0); MEAN CORPUSCULAR HEMOGLOBIN 28 pg (27.0-31.0)
[2019-09-08 07:16] LABS: CALCIUM 8.9 mg/dL (8.4-10.2); CREATININE, serum 1.59 (0.52-1.25); MAGNESIUM 1.9 mg/dL (1.6-2.3); POTASSIUM 4.2 mmol/L (3.4-5.0)
--- NOTE | 2019-09-08 07:33 | NUR ---
Vancomycin Follow-up Pharmacy Note Current regimen: VANCOMYCIN 1 G Q24H Vancomycin trough: 11 Adjustments: INCREASE TO VANCOMYCIN 1.25G Q24H
[2019-09-08 08:34] VITALS: BP 113/58; PULSE 102; TEMP 98.2
[2019-09-08 11:18] VITALS: BP 110/50; PULSE 97; TEMP 98.3
--- NOTE | 2019-09-08 12:42 | NUR ---
SW followed up with patient who says she is doing better then yesterday. Patient noted that her daughter continues to have IM note and that she will make sure she brings it back when she comes back after confucianist. SW will continue to follow up.
[2019-09-08 18:00] VITALS: BP 118/52; PULSE 98; TEMP 98.7
--- NOTE | 2019-09-08 18:30 | NUR ---
Patient has done well today. She sat up in the chair most the day. Her only complaint is that her right wrist/hand hurt. She said her arthritis is worse than usual. Did not want pain medications for it. Her IV infiltrated in her left forearm and a new one started to left forearm. Patient is hoping to discharge tomorrow. No other changes at this time. Call light within reach.
[2019-09-08 20:15] VITALS: BP 119/64; PULSE 111; TEMP 98.1
--- NOTE | 2019-09-08 21:00 | NUR ---
PT SITTING UP IN RECLINER. SHE RELATED SHE SAT UP MOST OF THE DAY. O2 1LNC. PT CONTINUES TO HAVE THICK LOOSE NONPRODUCTIVE COUGH. DYSPNEIC ON EXERTION. REMAINS WEAK BUT MORE ALERT TONIGHT. HAS DEPENDENT EDEMA BILAT LE. ENC ELEVATION WHEN IN RECLINER. RT WRIST ARTHRITIS NOTED SSE MAR FOR TYLENOL GIVEN. CALL LIGHT IN REACH.
[2019-09-09 00:39] VITALS: BP 104/55; PULSE 97; TEMP 98.5
[2019-09-09 04:54] VITALS: BP 99/53; PULSE 90; TEMP 98.6
[2019-09-09 06:50] LABS: CALCIUM 8.5 mg/dL (8.4-10.2); CREATININE, serum 1.64 (0.52-1.25); POTASSIUM 4.3 mmol/L (3.4-5.0)
--- NOTE | 2019-09-09 07:23 | NUR ---
Report from Kerri JIMENEZ.
--- NOTE | 2019-09-09 07:31 | NUR ---
pt on potassium protocol 4.3 this am no replacement indicated.
[2019-09-09 08:37] VITALS: BP 116/59; PULSE 100; TEMP 98.5
[2019-09-09 08:40] LABS: BASO % 0.3 % (0.0-2.0); EOS % 0.6 % (0-4.0); GRAN # 4.2 (1.4-6.5); GRAN % 67.4 % (42.2-75.2); LYMPH # 1.5 (1.2-3.4); LYMPH % 23.4 % (20.0-51.0); MEAN CELL VOLUME 91 fl (80.0-100.0); MEAN CORPUSCULAR HGB CONC 31 g/dl (33.0-37.0); MEAN PLATELET VOLUME 9.6 fl (7.4-10.4); MONO # 0.5 (0.1-0.6); MONO % 7.7 % (1.7-9.3); PLATELET COUNT 449 K/mm3 (130-400); RED BLOOD COUNT 2.81 M/mm3 (4.10-5.30); REDCELL DISTRIBUTION WIDTH-CV 14.5 % (11.5-14.5)
[2019-09-09 08:42] LABS: HEMATOCRIT 25.6 % (37.0-47.0); HEMOGLOBIN 7.8 g/dl (12.5-16.0); MEAN CORPUSCULAR HEMOGLOBIN 28 pg (27.0-31.0)
--- NOTE | 2019-09-09 09:44 | NUR ---
PT UP TO RECLINER WITH THERAPY. PT EATING BREAKFAST. AM MEDS GIVEN ORDERED. PT DENIES NEEDS AND STATES SHE FEELS THAT SHE IS IMPROVING TODAY.
--- NOTE | 2019-09-09 11:20 | NUR ---
Physical therapy is recommending a front wheeled walker for the patient. STEVEN presented the DME choice form, [facility] was chosen. SW to fax order. The patient's daughter inquired about IPR. STEVEN contacted CYNTHIA Razo Director and informed the patient's nurse. dining services director will continue to follow.
[2019-09-09 12:55] VITALS: BP 114/56; PULSE 95; TEMP 97.5
--- NOTE | 2019-09-09 13:36 | NUR ---
The patient has been accepted to [facility]. support services coordinator will continue to follow.
[2019-09-09] MEDS ORDERED: ROBITUSSIN A-C S1 M1 PO (16:17)
[2019-09-09] MEDS ORDERED: MERREM VIA500 MG/VIA IV (16:17)
[2019-09-09] MEDS ORDERED: SODIUM CHLORI1000 ML IV (16:17)
--- NOTE | 2019-09-09 16:46 | NUR ---
REPORT TO SHARMIN JIMENEZ IPR.
[2019-09-09] MEDS ORDERED: COZAAR100 MG PO (17:19)
[2019-09-09] MEDS ORDERED: HEPARIN SOD5000 U/ML SQ (17:40)
== END 2019-09-09 16:46 | DRG 871 ==
LOC: COL.ER 16:01 → SURG 18:07
PROVIDERS: Emergency Medicine; Internal Medicine; Internal Medicine Critical Care Medicine; Nurse Practitioner Family; Physician Assistant; ADMIT Student in an Organized Health Care Education/Training Program
DX: A41.9 Sepsis, unspecified organism (principal); J96.01 Acute respiratory failure with hypoxia; J13 Pneumonia due to Streptococcus pneumoniae; N17.9 Acute kidney failure, unspecified; J44.0 Chronic obstructive pulmonary disease with (acute) lower respiratory infection; E44.0 Moderate protein-calorie malnutrition; N39.0 Urinary tract infection, site not specified; J44.1 Chronic obstructive pulmonary disease with (acute) exacerbation; J90 Pleural effusion, not elsewhere classified; R65.20 Severe sepsis without septic shock; Z66 Do not resuscitate; M19.90 Unspecified osteoarthritis, unspecified site; D64.9 Anemia, unspecified; I27.20 Pulmonary hypertension, unspecified; J32.9 Chronic sinusitis, unspecified; Z86.73 Personal history of transient ischemic attack (TIA), and cerebral infarction without residual deficits; Z90.710 Acquired absence of both cervix and uterus; Z98.42 Cataract extraction status, left eye; Z98.41 Cataract extraction status, right eye; Z98.51 Tubal ligation status; Z79.02 Long term (current) use of antithrombotics/antiplatelets; Z87.891 Personal history of nicotine dependence; Z88.0 Allergy status to penicillin; Z88.6 Allergy status to analgesic agent; Z88.2 Allergy status to sulfonamides; Z88.3 Allergy status to other anti-infective agents; Z88.8 Allergy status to other drugs, medicaments and biological substances; Z88.1 Allergy status to other antibiotic agents; Z86.14 Personal history of Methicillin resistant Staphylococcus aureus infection; Z91.19 Patient's noncompliance with other medical treatment and regimen
CPT/HCPCS: 99231-AI; 99232-AI; 99233-AI; 99239; A4216; J0692; J1644; J1650; J1940; J1956; J2185; J2270; J3370; J7030; J7040; J7050

== ENCOUNTER 2019-09-09 15:06 | Inpatient (IN) | payer MEDICARE, BC ==
[~2019-09-09] VITALS: Ht 170.2 cm; Wt 63.5 kg
[2019-09-09] MEDS ORDERED: ROBITUSSIN A-C S1 M1 PO (16:17)
[2019-09-09] MEDS ORDERED: SODIUM CHLORI1000 ML IV (16:17)
[2019-09-09] MEDS ORDERED: MERREM VIA500 MG/VIA IV (16:17)
[2019-09-09] MEDS ORDERED: COZAAR100 MG PO (17:19)
[2019-09-09] MEDS ORDERED: HEPARIN SOD5000 U/ML SQ (17:40)
[2019-09-09 18:13] VITALS: BP 135/64; PULSE 101; TEMP 98.1
--- NOTE | 2019-09-09 20:24 | NUR ---
Report from Andi, surgical nurse. Pt admitted to room 336 via bed, on O2/NC, IVF, air mattress in place, A&O, pleasant, dyspnea with talking. Daughter Diane visiting and signing forms and reviewed IPR routine. Pt 1 assist by staff to BSC. Poor appetite. In gown and gripper socks. Bedside report to BARBARA Meade, and passed along that pt has wounds to coccyx, needs 5-page and family hx done.
--- NOTE | 2019-09-09 21:45 | NUR ---
Shift assessment complete. Patient in bed, awake. States 8/10 H/A. Prn tylenol given per pt request. 3 open areas noted on coccyx/buttocks, bleeding d/t brief sticking to wounds. Sites cleansed. Xeroform applied to all 3 sites, covered with mepilex x3. Denies further needs at this time. Will continue to monitor.
[2019-09-10 04:07] VITALS: BP 127/60; PULSE 93; TEMP 97.8
--- NOTE | 2019-09-10 04:11 | NUR ---
Patient in bed, awake. Ambulated to BSC with walker and assist x1. Denies pain. VS stable. States she does not want to get up in the chair for breakfast. Schedule for today explained to pt, she verbalizes understanding. Denies further needs at this time. Will continue to monitor.
--- NOTE | 2019-09-10 06:00 | NUR ---
Called to pt room by LIGHT RAIL OPERATOR. Pt amb[facility] to [facility], active nosebleed. Appears to have clotted off. Will notify Dr. Masters as pt is on heparin subq for VTE. Placed on oxymask d/t nosebleed. Patient also very SOB. 93% on 2L. Increased to 4L for pt comfort. 100% on 4L oxymask. Will continue to monitor.
[2019-09-10 07:51] LABS: BASO % 0.4 % (0.0-2.0); EOS % 0.6 % (0-4.0); GRAN # 3.5 (1.4-6.5); GRAN % 69.7 % (42.2-75.2); LYMPH % 20.4 % (20.0-51.0); MEAN CELL VOLUME 91 fl (80.0-100.0); MEAN CORPUSCULAR HGB CONC 30 g/dl (33.0-37.0); MEAN PLATELET VOLUME 9.4 fl (7.4-10.4); MONO # 0.4 (0.1-0.6); MONO % 8.5 % (1.7-9.3); PLATELET COUNT 492 K/mm3 (130-400); RED BLOOD COUNT 3.03 M/mm3 (4.10-5.30); REDCELL DISTRIBUTION WIDTH-CV 14.3 % (11.5-14.5)
[2019-09-10 07:58] LABS: HEMATOCRIT 27.6 % (37.0-47.0); HEMOGLOBIN 8.4 g/dl (12.5-16.0); MEAN CORPUSCULAR HEMOGLOBIN 28 pg (27.0-31.0)
[2019-09-10 08:04] LABS: CALCIUM 9.2 mg/dL (8.4-10.2); CREATININE, serum 1.46 (0.52-1.25); POTASSIUM 3.9 mmol/L (3.4-5.0)
--- NOTE | 2019-09-10 09:10 | NUR ---
Patient had another bloody nose and currently has a mask on instead of getting oxygen via nasal canula. She was seen by RT this morning and they will return this afternoon with some water to humidify her oxygen then. Patient denies pain at this time. Patient is resting in bed at this time, call light in reach and bed alarm set. Will continue to monitor. Bloody nose has stopped bleeding at this time.
--- NOTE | 2019-09-10 09:16 | NUR ---
Patient refused breakfast this AM. Only wanting to keep her bannana for later and orange juice. Will continue to monitor.
--- NOTE | 2019-09-10 15:54 | NUR ---
Dr. Masters DC'd patient's Heprin. She will remain on SCD's for VTE protocol. Patient had episode of SOB this morning and this afternoon. Her Oxygen was at 96% at the time. RT was notified for a breathing treatment. Patient improved following breathing treatment. Will continue to monitor.
[2019-09-10 16:06] VITALS: BP 139/72; PULSE 95; TEMP 98
--- NOTE | 2019-09-10 16:09 | NUR ---
Conveyor Operator met with patient's daughter, Diane briefly as she was leaving patient's room to discuss scheduling a family meeting. Diane advised she could be available (09/12) at 1:15pm. STEVEN notified Danni [facility] Director. STEVEN then met with patient to complete initial intake and review conference team notes. SW notified patient of family meeting date and time. Patient lives in [place] with Diane and was independent with ADLS prior to admission. Diane advised SW that patient was able to drive and was very independent. Patient has a shower chair and step in shower at home. Patient sees Dr. Latrice Juarez for primary care and obtains medications from [facility]. Patient reports she has Advance Directives but SW did not locate copies in EMR. SW to continue to follow to ensure safe discharge.
--- NOTE | 2019-09-10 21:00 | NUR ---
PT SITTING IN RECLINER. A&O. DOZING INTERMITTENTLY. NO RESP DISRESS. OCCASIONAL LOOSE THICK NONPRODUCTIVE COUGH NOTED. O2 1LNC. SL DYSPNEC WITH ACTIVITY. IV 1/2 NS AT 75CCHR TO LT F/A. ASSISTED TO BSC. VOIDED MOD CLEAR YELLOW URINE. TRANSFERRED TO BED. GAVE TYLENOL FOR ARTHITIS PAIN. CALL LIGHT IN REACH. BED ALARM SET.
[2019-09-11 05:32] VITALS: BP 116/50; PULSE 89; TEMP 98.7
--- NOTE | 2019-09-11 10:26 | NUR ---
Patient working with therapy at this time. Per Dr. Masters patient okay to have IV off unhooked from IV fluids during therapy. Patient reporting some arthritis pain to her left elbow. Given prn pain meds with good effect. Will continue to monitor.
--- NOTE | 2019-09-11 11:59 | NUR ---
Patient resting in bed at this time talking on the phone. She has her call light in reach, bed alarm on and slip proof socks on.
[2019-09-11 18:26] VITALS: BP 142/54; PULSE 104; TEMP 97.8
--- NOTE | 2019-09-11 19:40 | NUR ---
Patient was seen by Dr. Masters this afternoon and he DC'd her IV fluids. See new consult order for Dr. Mcneal. He was contacted and received an update on the patient. Awaiting a return call to find out a stop date on patients antibiotics. Patient didn't eat alot of the food served, but did eat snacks that family brought in. Mepilex to bottom popped blisters are CDI at this time. Will continue to monitor. Patient has not been using the bed villafana. She has been transferring to the toilet each time. Reported off to night nurse.
--- NOTE | 2019-09-11 21:00 | NUR ---
PT RESTING IN BED. ROOM VERY WARM. PT WANTS IT THAT WAY. PT C/O DYSPNEA. O2 2L NC. DENIES PRODUCTIVITY WITH LOOSE THICK COUGH. RT NOTIFIED FOR NEXT SVN TX. DENIES NEED FOR TYLENOL TONIGHT.CALL LIGHT IN REACH. BED ALARM SET.
--- NOTE | 2019-09-11 23:30 | NUR ---
ASSISTED PT TO BR WITH WALKER. SLOW WEAK GAIT WITH O2 2L NC. SL DYSPNEIC WITH ACTIVITY. CHANGED MEPILEX DRSGS TO LT BUTTOCKS FROM RUPTURED BLISTERSD. NEW BLISTER NOTED UNRUPTURED.
--- NOTE | 2019-09-12 01:37 | NUR ---
ASSISTED PT TO BR WITH WALKER. VOIDED W/O DIFFICULTY. DYSPNEIC WITH ACTIVITY. ROOM VERY WARM- MAYBE ATTRIBUTING TO DYSPNEA ALSO. CALLED RT FOR PRN INHALER.
[2019-09-12 02:52] VITALS: BP 118/50; PULSE 93; TEMP 98.6
--- NOTE | 2019-09-12 05:42 | NUR ---
PT TO BR WITH WALKER. HAD LARGE AMT OF DIARRHEA. AND LT NASAL BLEED. ROOM TOO WARM CHANGED THERMOSTAT. ASSISTED BACK TO BED. DYSPNEIC. ENC SLOW BREATHING WITH EFFECTIVE BREATHING TECHNIQUE. LT NASAL BLEED STOPPED. NOTIFIED RT FOR TX. PT SITTING ON SIDE OF BED STILL DYSPNIEC.
[2019-09-12 05:52] VITALS: BP 152/74; PULSE 106
--- NOTE | 2019-09-12 06:02 | NUR ---
RT WAS HERE GAVE INHALER. FEELING BETTER NOW.
--- NOTE | 2019-09-12 06:39 | NUR ---
PT BREATHING IMPROVED. RESTING AT THIS TIME. O2 2L NC.
--- NOTE | 2019-09-12 07:16 | NUR ---
Report from Kerri JIMENEZ.
--- NOTE | 2019-09-12 08:45 | NUR ---
PT OUT TO [facility] FOR THERAPY. PT UP TO BR WITH SBA. RETURNED TO BED WITH SBA. PT HAD BREATHING TX THIS AM.
--- NOTE | 2019-09-12 13:40 | NUR ---
SW attended family meeting with the patient, the patient's daughter and son-in-law. CYNTHIA Razo Director began the meeting and explained it's purpose. PT/OT were in attendance and discussed the patient's progress. There was no discharge date set at this time. The team will re-evaluate the patient next week. representative phlebotomy services will continue to follow.
--- NOTE | 2019-09-12 14:08 | NUR ---
Admission QIM scores were reviewed by the team. Code of 1 chosen for lower body dressing was determined by team discussion to be the most usual performance before interventions for this patient during the assessment period.--Danni Gomez, PD
--- NOTE | 2019-09-12 15:31 | NUR ---
REPORT TO SHAYY JIMENEZ.
[2019-09-12 18:24] VITALS: BP 129/52; PULSE 96; TEMP 98.1
--- NOTE | 2019-09-12 20:00 | NUR ---
RESTING IN BED DURING SHIFT CHANGE REPORT FROM DAY SHIFT NURSE. BED ALARM ENGAGED. DAUGHTER IN ROOM. PATIENT DENIES ANY NEEDS CURRENTLY. OXYGEN CONTINUES PER NASAL CANNULA.
--- NOTE | 2019-09-12 21:00 | NUR ---
OBSERVED BLOOD FROM LEFT NARES, PATIENT REPORTS "2ND ONE TODAY" THAT SUBSIDED WITH PRESSURE DRESSING APPLIED BY PATIENT AFTER APPROXIMATELY 10 MIN. NO FURTHER BLEEDING FROM NOSE OBSERVED.
--- NOTE | 2019-09-13 01:34 | NUR ---
RESTING IN BED WITH EYES CLOSED, DOES NOT AWAKEN WHEN ROOM ENTERED. BREATHING NONLABORED AND EVEN. BED ALARM ENGAGED.
[2019-09-13 04:00] VITALS: BP 135/57; PULSE 102; TEMP 98.3
--- NOTE | 2019-09-13 04:04 | NUR ---
REPORTED FEELING SHORT OF BREATH. PATIENT REPOSITIONED SELF TO DANGLE AT SIDE OF BED AND REPORTED THAT SHORTNESS OF BREATH IMPROVED WITH DANGLING. INCREASED O2 TO 3LPM/NC. PATIENT PUT UP IN CHAIR PER PATIENT REQUEST. CHAIR ALARM ENGAGED
--- NOTE | 2019-09-13 06:55 | NUR ---
PATIENT UP IN CHAIR SLEEPING DURING SHIFT CHANGE REPORT GIVEN TO DAY SHIFT NURSE. CHAIR ALARM ENGAGED.
[2019-09-13 07:23] LABS: CALCIUM 9.1 mg/dL (8.4-10.2); CREATININE, serum 1.17 (0.52-1.25)
--- NOTE | 2019-09-13 11:38 | NUR ---
Pt given tylenol for back pain 10/ after PT session. Pt asleep in chair at this time, O2 @ 1.75LPNC. Yellow gripper socks in place. Pickle in reach on tray. Pt took pills whole with water. Alert, pleasant, has SOA with exertion. Glasses in reach.
[2019-09-13 16:08] VITALS: BP 138/64; PULSE 92; TEMP 98.6
--- NOTE | 2019-09-13 17:35 | NUR ---
Per Dr. Mcneal, obtain 2 view chest xray tomorrow morning as follow up on pneumonia to evaluate cessation of antibiotics after tomorrow's doses. Notified Radiology, updated pt and daughter who is visiting at this time.
--- NOTE | 2019-09-13 19:14 | NUR ---
Bedside report to BARBARA Lira. Pt's daughter leaving, pt to chair with call lt in reach, O2@1LPNC, yellow gripper socks in place. IV abx to L hand, flushed well. Redness to LFA old IV site, skin firm around it.
--- NOTE | 2019-09-13 19:30 | NUR ---
PATIENT RESTING IN ROOM WITH NO COMPLAINTS DURING SHIFT CHANGE REP0RT.
--- NOTE | 2019-09-13 20:00 | NUR ---
EDEMA TO BLE WITH LEFT GREATER THAN RIGHT. REFUSTED OFFER OF ROBITUSSIN FOR NONPRODUCTIVE MOIST COUGH. BED ALARM ENGAGED
--- NOTE | 2019-09-13 20:10 | NUR ---
BED ALARM ENGAGED. RESTING IN BED WITH NO COMPLAINTS. OBSERVED COUGH, MOIST NONPRODUCTIVE CURRENTLY, REFUSED OFFER OF COUGH MEDICINE CURRENTLY.
--- NOTE | 2019-09-13 23:31 | NUR ---
RESTING WITH EYES CLOSED, BREATHING NONLABORED AND EVEN. DOES NOT AWAKEN WHEN ROOM ENTERED. BED ALARM ENGAGED.
--- NOTE | 2019-09-14 02:36 | NUR ---
RESTING WITH EYES CLOSED, HAS NO COMPLAINTS OR NEEDS WHEN AWAKEN WITH ENTERING OF ROOM. BED ALARM ENGAGED.
[2019-09-14 05:32] VITALS: BP 143/71; PULSE 99; TEMP 98.1
--- NOTE | 2019-09-14 07:20 | NUR ---
UP IN CHAIR DURING SHIFT CHANGE REPORT GIVEN TO DAY SHIFT NURSE. CHAIR ALARM ENGAGED
--- NOTE | 2019-09-14 07:33 | NUR ---
REPORTS DOES NOT WANT TO EAT AT THIS TIME, WANTS TO SLEEP MORE, DAY SHIFT NURSE INFORMED OF PATIENT WANTING TO WAIT TO EAT LATER.
--- NOTE | 2019-09-14 09:58 | NUR ---
Patient took morning pills whole with water. She refused her breakfast this morning with staff leaving some grapes for her to snack on following therapy today. Patient currently working with group therapy at this time. Given prn Tylenol for generalized pain this am. Will continue to monitor.
--- NOTE | 2019-09-14 13:45 | NUR ---
Assisted patient to a reclined position in her recliner per patient request. She is wanting to rest at this time. Call light in reach, chair alarm is on, slip proof socks are on. Will continue to monitor.
--- NOTE | 2019-09-14 15:09 | NUR ---
Patient received a breathing treatment from RT and she set her oxygen at 1 L NC at this time. Patient had been on 2 L earlier this morning. Patient at some of her lunch this afternoon. She also had visitors this afternoon.
--- NOTE | 2019-09-14 15:53 | NUR ---
Patient resting in recliner at this time, call light in reach and alarm is on.
[2019-09-14 16:50] VITALS: BP 134/66; PULSE 103; TEMP 98.5
--- NOTE | 2019-09-14 20:00 | NUR ---
UP IN CHAIR DURING SHIFT CHANGE REPORT, DYPSNEA WHEN ATTEMPTING TO EAT LATE SUPPER TRAY, RT INFORMED OF PATIENT REQUEST FOR PRN TX. OXYGEN RATE INCREASED FROM 1 LPM TO 2 LMP PER NC. DAUGHTER IN ROOM WITH PATIENT. CHAIR ALARM ENGAGED.
--- NOTE | 2019-09-14 22:30 | NUR ---
PATIENT AGREED TO WEAR SONIA HOSE, PATIENT TOLERATED APPLICATION OF KNEE HIGH SONIA HOSE TO BLE. PATIENT TO BED PER PATIENT REQUEST.
--- NOTE | 2019-09-15 01:00 | NUR ---
RESTING WITH EYES CLOSED, DOES NOT AWAKEN WHEN ROOM ENTERED. BREATHING NONLABORED AND EVEN. BED ALARM ENGAGED.
--- NOTE | 2019-09-15 02:04 | NUR ---
PATIENT REQUESTING PRN RT TX AFTER BEING UP TO BATHROOM AND BACK TO BED. RT NOTIFIED OF PATIENT'S REQUEST. BED ALARM ENGAGED.
--- NOTE | 2019-09-15 04:25 | NUR ---
RESTING WITH EYES CLOSED, BREATHING EVEN AND NONLABORED. DOES NOT AWAKEN WHEN ROOM ENTERED. BED ALARM ENGAGED.
[2019-09-15 04:51] VITALS: BP 143/65; PULSE 100; TEMP 97.8
--- NOTE | 2019-09-15 09:47 | NUR ---
Patient resting in bed at this time, call light in reach and bed alarm set. Patient denies any questions at this time. Patient wearing Chandan Hose due to bilateral lower leg edema. Reports some pain to left heel. No redness, or warmth observed to area. Will continue to monitor.
--- NOTE | 2019-09-15 10:09 | NUR ---
Patient sleeping in bed at this time.
--- NOTE | 2019-09-15 15:11 | NUR ---
Patient resting in bed with family by her side.
[2019-09-15 16:47] VITALS: BP 135/57; PULSE 97; TEMP 98.3
--- NOTE | 2019-09-15 20:00 | NUR ---
PATIENT LAYING IN BED DURING SHIFT CHANGE REPORT FROM DAY SHIFT NURSE, BED ALARM ENGAGED. CURRENTLY HAVING SHORTNESS OF BREATH FROM BATHROOM TRIP, NOW BACK IN BED, WAITING ON RETURN FROM RT FOR TX, OBSERVED BREATHING SHALLOW AND LABORED. DENIES CHEST PAIN, C/O PAIN TO LLE, SONIA HOSE OFF, REFUSES SCD CURRENTLY.
--- NOTE | 2019-09-15 21:30 | NUR ---
REQUESTED, GIVEN TYLENOL FOR C/O DISCOMFORT TO LLE. BED ALARM ENGAGED
--- NOTE | 2019-09-16 00:40 | NUR ---
Informed patient, put on NPO status tentatively for possible thoracentesis later in morning (09/16/19). No other needs reported. Bed alarm engaged.
[2019-09-16 04:45] VITALS: BP 173/74; PULSE 90; TEMP 97.6
--- NOTE | 2019-09-16 07:28 | NUR ---
PATIENT RESTING IN BED DURING SHIFT CHANGE REPORT GIVEN TO DAY SHIFT NURSE. BED ALARM ENGAGED.
[2019-09-16 08:13] LABS: INR 1.2 (0.8-3.0); PROTHROMBIN TIME 13.7 SECONDS (9.7-12.8)
--- NOTE | 2019-09-16 14:04 | NUR ---
Pt's daughter arrived and signed consent for thoracentesis, tech here to take her with RT sending pt on breathing tx.
--- NOTE | 2019-09-16 14:30 | NUR ---
Bedside report from BARBARA Lira. Pt was in bed asleep, declined breakfast, concerned about thoracentesis today, called to update daughter Diane, questions answered. Pt on O2 @ 1 LPNC, takes pills whole with thin liquids. Answered call from Dr. Mcneal, ID. Held Plavix this morning d/t thoracentesis planned. Called RT for breathing txs x2. Pt has wet cough, very SOA with exertion. Applied two new mepilexs to left buttock after pt showered. Three dry scabs intact. Gripper socks in place.
--- NOTE | 2019-09-16 15:15 | NUR ---
SW met with the patient to introduce oneself and to follow up after the weekend. The patient was sitting up in her chair. She states that she is tired and that today wore her out. She states that it was one thing after another. The patient had no other questions or concerns for SW at this time. SW to continue to follow.
[2019-09-16 16:44] VITALS: BP 128/60; PULSE 95; TEMP 98.9
--- NOTE | 2019-09-16 19:11 | NUR ---
Bedside report to BARBARA Donis. Pt in recliner with call lt in reach, O2@1LPNC, daughter had left. After thoracentesis, pt states she is tired, was tired prior to procedure, unable to tell if shortness of breath is improved, daughter states she thinks pt is better.
--- NOTE | 2019-09-16 20:20 | NUR ---
HS meds all reviewed and given. RT in and administered breathing treatment for shortness of breath. Patient reports helped. Rests in bed and declines snack. Affect quiet. Tylenol given for pain "left side and left hand". Denies pain to IV site and flushes with ease.
--- NOTE | 2019-09-16 21:30 | NUR ---
Patient rests in bed with eyes closed. Respirations with ease.
--- NOTE | 2019-09-16 23:09 | NUR ---
Rests with eyes closed. Respirations with ease. 02 on.
--- NOTE | 2019-09-17 01:51 | NUR ---
Patient rests with eyes closed. Respirations with ease.
[2019-09-17 02:46] VITALS: BP 146/77; PULSE 94; TEMP 98.2
--- NOTE | 2019-09-17 05:04 | NUR ---
Patient reports dyspnea after toileting and has moist non-productive couph. Sao2 93% on 1lpnc 02, HR 98. RT notified and into give patient RT treatment. Patient denies pain and declines tylenol. States "nope" to getting sleep this noc.
[2019-09-17 16:38] VITALS: BP 130/60; PULSE 95; TEMP 98.9
--- NOTE | 2019-09-17 18:30 | NUR ---
Patient did well with therapy today. She stated is feeling very tired and weak. Denies pain or nausea. Family at bedside. No other changes at this time. Call light within reach.
--- NOTE | 2019-09-17 19:15 | NUR ---
Report received from Michaelle JIMENEZ.
--- NOTE | 2019-09-17 21:00 | NUR ---
HS meds along with tylenol for pain "whole left side" reviewed and given. Patient intially resting in bed with eyes closed. Knee hi teds removed and SCD's applied. Patient given snack of strawberry enlive.
--- NOTE | 2019-09-18 01:07 | NUR ---
Patient rests quietly in bed with eyes closed. Respirations with ease.
--- NOTE | 2019-09-18 02:00 | NUR ---
Patient returned from the bathroom accompanied by MAURICIO. Reports restless sleep but denies pain and declines pain med. INT outdated to LW and discontinued without problems.
[2019-09-18 04:08] VITALS: BP 146/66; PULSE 99; TEMP 98
--- NOTE | 2019-09-18 05:34 | NUR ---
Patient resting on right side with eyes closed. Respirations with ease.
--- NOTE | 2019-09-18 08:02 | NUR ---
Bedside report from BARBARA Donis. Pt sitting edge of bed with O2@2LPNC, cont to have SOA, declines assist with donning TEDs at this time, took pills whole with thin liq.
--- NOTE | 2019-09-18 10:41 | NUR ---
Pt given tylenol for left abd pain, pt having nausea per Isatu, KEARNEY, robitussin given for cough.
--- NOTE | 2019-09-18 14:40 | NUR ---
The patient is requiring a walker and home health services for discharge. Prior to IPR the patient and the patient's daughter chose [facility] to receive the walker and chose [facility] for home health services. SW spoke to the patient's daughter, Diane and she reports they would like to keep that the same. A RT exercise oximetry was ordered for the patient. family services assistant will continue to monitor.
--- NOTE | 2019-09-18 15:44 | NUR ---
Ant from [facility] reports they can accept the patient for PT/OT services.
[2019-09-18 17:14] VITALS: BP 139/55; PULSE 97; TEMP 97.8
--- NOTE | 2019-09-18 18:56 | NUR ---
Pt made mod I in rm w/ walker. Daughter Diane roca, reviewed Mod I and discharge plan for 09/20. Reported to Dr. Masters that pt has not had labs ordered to re-check a CBC since 09/[address] Mcneal was following PNA. Reminded Dr. Masters of this later when he rounded on pt. No new orders. Pt in chair with feet up for supper.
--- NOTE | 2019-09-18 20:00 | NUR ---
PATIENT UP IN CHAIR DURING SHIFT CHANGE REPORT FROM DAY SHIFT NURSE. UP INDEP IN ROOM, DENIES ANY NEEDS, OBSERVED SHORT OF BREATHE AFTER BATHROOM TRIP, O2 AT 2LPM/NC.
--- NOTE | 2019-09-19 03:00 | NUR ---
RESTING WITH EYES CLOSED, DOES NOT AWAKEN WHEN DOOR TO ROOM OPENED. BREATHING NONLABORED AND EVEN, O2 CONTINUES PER NASAL CANNULA. UP IN ROOM INDEPENDENTLY.
[2019-09-19 05:17] VITALS: BP 124/57; PULSE 88; TEMP 98.6
--- NOTE | 2019-09-19 06:36 | NUR ---
RESTING IN BED, UP IN ROOM INDEPENDENTLY WITH NO PROBLEMS.
--- NOTE | 2019-09-19 07:43 | NUR ---
Patient sitting up at side of bed with eyes closed, does not awaken when room entered during shift change report given to day shift nurse. Patient up indep in room with no problems.
--- NOTE | 2019-09-19 10:54 | NUR ---
Patient working with OT at this time.
--- NOTE | 2019-09-19 15:54 | NUR ---
STEVEN contacted [facility] for the FWW order. [facility] reports that they do not bill insurance for their walkers and that the haynes sherman would be $99. STEVEN contacted the patient's daughter, Diane, to inform and to discuss the other DME companies. The patient also qualified for two liters of continuous oxygen. Diane states that they would like to bill insurance and chose [facility] for both the FWW and oxygen. STEVEN contacted and faxed both orders to Chika at [facility]. Awaiting delivery.
[2019-09-19 16:16] VITALS: BP 117/51; PULSE 89; TEMP 98.4
--- NOTE | 2019-09-19 16:29 | NUR ---
Patient resting in bed at this time, call light in reach and is independent in her room. Patient had her exercise oximetry test completed and she was taken off oxygen for 10 minutes prior to the test. Patient was at 87% on room air, so RT did not need to do the exercise oximetry test. This was communicated to STEVEN.
--- NOTE | 2019-09-19 19:49 | NUR ---
Patient is independent in her room, she is on 2 L oxygen at this time. Patient uses call light appropriatly. She attended all therapies. Denies any questions at this time. Patient refused her supper tonya reporting that she did not like it at all. This was communicated to the waiter this evening.
--- NOTE | 2019-09-19 20:00 | NUR ---
PATIENT RESTING IN BED DURING SHIFT CHANGE REPORT FROM DAY SHIFT NURSE. UP IN ROOM INDEPENDENTLY. REQUESTING TYLENOL AND ROBITUSSIN WITH [facility].
--- NOTE | 2019-09-20 02:52 | NUR ---
Patient resting with eyes closed, does not awaken when room entered. Breathing even and nonlabored.
--- NOTE | 2019-09-20 04:34 | NUR ---
PATIENT SITTING AT SIDE OF BED, REQUESTING PRN RT TX, CONTACT RT REGARDING PATIENT'S REQUEST. NO OTHER NEEDS REPORTED AT THIS TIME. O2 CONTINUES AT 2 LPM/NC.
[2019-09-20 05:29] VITALS: BP 148/60; PULSE 88; TEMP 97.7
--- NOTE | 2019-09-20 07:08 | NUR ---
PATIENT RESTING IN BED WITH EYES CLOSED, DOES NOT AWAKEN WHEN ROOM ENTERED, DURING SHIFT CHANGE REPORT GIVEN TO DAY SHIFT NURSE.
[2019-09-20] MEDS ORDERED: ROBITUSSIN A-C S1 M1 PO (08:25)
--- NOTE | 2019-09-20 08:51 | NUR ---
Patient resting in bed at this time. Ate 20% of breakfast this am. Denies questions this morning. Discussed discharge with patient. Patient takes pills whole with water. Asked her if she wanted to get dressed, she preferred to rest in bed a little longer. Will continue to monitor.
--- NOTE | 2019-09-20 09:53 | NUR ---
STEVEN contacted Chika at [facility] to follow up on delivery for the FWW and oxygen. Chika reports that they will be delivering the equipment to the patient's room this morning. STEVEN updated the patient's RN. The patient is to discharge back home with her daughter today, 09/20, and home health services for alf/PT/OT through [facility]. STEVEN contacted and faxed the patient's discharge orders to Ant at [facility]. STEVEN also presented and explained the IM form to the patient. The patient verbalized understanding, signed, and she was provided a copy. No additional needs at this time.
--- NOTE | 2019-09-20 18:21 | NUR ---
Patient Health Summary, Discharge Summary, and Home Meds printed and reviewed with patient and daughter. Stressed importance of follow up appointments. Reviewed medications, provided printed Rx for cough medicine. Belongings gathered by Evelin/RN including phone, video photographer, clothes from laundry hamper, Oxygen, tubing and new patient walker. Patient transported via wheelchair by MAURICIO/Denise and seatbelted for ride home. Patient and daughter denied any questions.
== END 2019-09-20 15:20 | disposition home health service (06) | DRG 947 ==
PROVIDERS: ADMIT Internal Medicine
DX: R53.81 Other malaise (principal); A41.9 Sepsis, unspecified organism; J96.01 Acute respiratory failure with hypoxia; J13 Pneumonia due to Streptococcus pneumoniae; N17.9 Acute kidney failure, unspecified; J44.0 Chronic obstructive pulmonary disease with (acute) lower respiratory infection; I10 Essential (primary) hypertension; M19.90 Unspecified osteoarthritis, unspecified site; Z66 Do not resuscitate; J32.9 Chronic sinusitis, unspecified; K21.9 Gastro-esophageal reflux disease without esophagitis; D64.9 Anemia, unspecified; J30.9 Allergic rhinitis, unspecified; I27.20 Pulmonary hypertension, unspecified; F17.210 Nicotine dependence, cigarettes, uncomplicated; Z86.73 Personal history of transient ischemic attack (TIA), and cerebral infarction without residual deficits; Z90.710 Acquired absence of both cervix and uterus; Z88.6 Allergy status to analgesic agent; Z88.0 Allergy status to penicillin; Z88.2 Allergy status to sulfonamides; Z88.1 Allergy status to other antibiotic agents
CPT/HCPCS: 99222-AI; 99232-AI; 99239; A4216; J1644; J2185

== ENCOUNTER 2019-10-01 13:12 | Outpatient (CLI) | payer MEDICARE, BC ==
[~2019-10-01] VITALS: Ht 170.2 cm; Wt 62.5 kg
[~2019-10-01 13:12] MED LIST changes: +HEPARIN SOD5000 U/ML SQ; +MERREM VIA500 MG/VIA IV; +ROBITUSSIN A-C S1 M1 PO; +SODIUM CHLORI1000 ML IV
[2019-10-01 13:35] VITALS: BP 149/53; PULSE 96; TEMP 97.4
== END 2019-10-01 14:30 | disposition home or self-care (01) ==
LOC: EUO 13:12
DX: J44.9 Chronic obstructive pulmonary disease, unspecified (principal); Z79.899 Other long term (current) drug therapy
CPT/HCPCS: J2182

== ENCOUNTER 2019-10-29 13:34 | Outpatient (CLI) | payer MEDICARE, BC ==
[~2019-10-29] VITALS: Ht 170.2 cm; Wt 60.6 kg
[2019-10-29 14:30] VITALS: BP 132/69; PULSE 95; TEMP 98.4
== END 2019-10-29 15:30 | disposition home or self-care (01) ==
LOC: EUO 13:34
DX: J44.9 Chronic obstructive pulmonary disease, unspecified (principal); Z79.899 Other long term (current) drug therapy
CPT/HCPCS: J2182

== ENCOUNTER 2019-11-26 13:36 | Outpatient (CLI) | payer MEDICARE, BC ==
[~2019-11-26] VITALS: Ht 170.2 cm; Wt 68.3 kg
[2019-11-26 14:10] VITALS: BP 125/56; PULSE 79; TEMP 98.5
== END 2019-11-26 14:38 | disposition home or self-care (01) ==
LOC: EUO 13:36
DX: J44.9 Chronic obstructive pulmonary disease, unspecified (principal); Z79.899 Other long term (current) drug therapy
CPT/HCPCS: J2182

== ENCOUNTER 2019-12-24 13:28 | Outpatient (CLI) | payer MEDICARE, BC ==
[~2019-12-24] VITALS: Ht 170.2 cm; Wt 62.3 kg
[2019-12-24 13:53] VITALS: BP 133/70; PULSE 91; TEMP 98.1
== END 2019-12-24 14:20 | disposition home or self-care (01) ==
LOC: EUO 13:28
DX: J44.9 Chronic obstructive pulmonary disease, unspecified (principal); Z79.899 Other long term (current) drug therapy
CPT/HCPCS: J2182

== ENCOUNTER 2020-01-21 13:36 | Outpatient (CLI) | payer MEDICARE, BC ==
[~2020-01-21] VITALS: Ht 170.2 cm; Wt 65.1 kg
[2020-01-21 13:58] VITALS: BP 157/76; PULSE 87; TEMP 98.4
== END 2020-01-21 16:06 | disposition home or self-care (01) ==
LOC: EUO 13:36
DX: J44.9 Chronic obstructive pulmonary disease, unspecified (principal); Z79.899 Other long term (current) drug therapy
CPT/HCPCS: J2182

== ENCOUNTER 2020-02-18 13:37 | Outpatient (CLI) | payer MEDICARE, BC ==
[~2020-02-18] VITALS: Ht 170.2 cm; Wt 66.6 kg
[2020-02-18 14:11] VITALS: BP 164/53; PULSE 84; TEMP 98.3
== END 2020-02-18 14:11 | disposition home or self-care (01) ==
LOC: EUO 13:37
DX: J44.9 Chronic obstructive pulmonary disease, unspecified (principal); Z79.899 Other long term (current) drug therapy
CPT/HCPCS: J2182

== ENCOUNTER 2020-03-17 13:14 | Outpatient (CLI) | payer MEDICARE, BC ==
[~2020-03-17] VITALS: Ht 170.2 cm; Wt 68.0 kg
[2020-03-17 13:27] VITALS: BP 123/54; PULSE 85; TEMP 98
== END 2020-03-17 14:15 | disposition home or self-care (01) ==
LOC: EUO 13:14
DX: J44.9 Chronic obstructive pulmonary disease, unspecified (principal); Z79.899 Other long term (current) drug therapy
CPT/HCPCS: J2182

== ENCOUNTER 2020-04-13 13:20 | Outpatient (CLI) | payer MEDICARE, BC ==
[~2020-04-13] VITALS: Ht 170.2 cm; Wt 67.7 kg
[2020-04-13 13:30] VITALS: BP 123/68; PULSE 86; TEMP 98.6
== END 2020-04-13 13:59 | disposition home or self-care (01) ==
LOC: EUO 13:20
DX: J44.9 Chronic obstructive pulmonary disease, unspecified (principal)
CPT/HCPCS: J2182

== ENCOUNTER → 2020-05-04 | Outpatient (CLI) | payer MEDICARE, BC | LOC: MC.RAD 10:50 | DX: Z12.31 Encounter for screening mammogram for malignant neoplasm of breast (principal) ==

== ENCOUNTER 2020-05-14 12:55 | Outpatient (CLI) | payer MEDICARE, BC ==
[2020-05-14 13:03] VITALS: BP 122/64; PULSE 80; TEMP 97.9
[2020-05-14] MEDS ORDERED: IRON TABLETS325 MG PO (15:20)
[2020-05-14] MEDS ORDERED: PHARMASSURE MA500 MG PO (15:20)
[2020-05-14] MEDS ORDERED: PLAVIX 75MG TAB75 MG PO (15:23)
== END 2020-05-14 13:30 | disposition home or self-care (01) ==
LOC: EUO 12:55
DX: J44.9 Chronic obstructive pulmonary disease, unspecified (principal); Z79.899 Other long term (current) drug therapy
CPT/HCPCS: J2182

== ENCOUNTER 2020-06-11 13:52 | Outpatient (CLI) | payer MEDICARE, BC ==
[~2020-06-11] VITALS: Ht 170.2 cm; Wt 69.0 kg
[2020-06-11 13:28] VITALS: BP 108/57; PULSE 78; TEMP 98.1
[~2020-06-11 13:52] MED LIST changes: +IRON TABLETS325 MG PO; +PHARMASSURE MA500 MG PO
== END 2020-06-15 15:36 ==
LOC: EUO 13:52
DX: J44.9 Chronic obstructive pulmonary disease, unspecified (principal); Z79.899 Other long term (current) drug therapy
CPT/HCPCS: J2182

== ENCOUNTER 2020-07-09 13:21 | Outpatient (CLI) | payer MEDICARE, BC ==
[~2020-07-09] VITALS: Ht 170.2 cm; Wt 71.2 kg
[2020-07-09 13:42] VITALS: BP 139/62; PULSE 73; TEMP 97.5
== END 2020-07-09 14:55 | disposition home or self-care (01) ==
LOC: EUO 13:21
DX: J44.9 Chronic obstructive pulmonary disease, unspecified (principal); Z79.899 Other long term (current) drug therapy
CPT/HCPCS: J2182

== ENCOUNTER 2020-08-13 13:11 | Outpatient (CLI) | payer MEDICARE, BC ==
[~2020-08-13] VITALS: Ht 170.2 cm; Wt 71.4 kg
[2020-08-13 13:42] VITALS: BP 145/95; PULSE 65; TEMP 98.3
== END 2020-08-13 14:40 | disposition home or self-care (01) ==
LOC: EUO 13:11
DX: J44.9 Chronic obstructive pulmonary disease, unspecified (principal); Z79.899 Other long term (current) drug therapy
CPT/HCPCS: J2182

== ENCOUNTER 2020-09-10 13:17 | Outpatient (CLI) | payer MEDICARE, BC ==
[~2020-09-10] VITALS: Ht 170.2 cm; Wt 69.4 kg
[2020-09-10 14:05] VITALS: BP 146/76; PULSE 81; TEMP 98.2
== END 2020-09-10 14:15 | disposition home or self-care (01) ==
LOC: EUO 13:17
DX: J44.9 Chronic obstructive pulmonary disease, unspecified (principal)
CPT/HCPCS: J2182

== ENCOUNTER 2020-10-08 13:33 | Outpatient (CLI) | payer MEDICARE, BC ==
[~2020-10-08] VITALS: Ht 170.2 cm; Wt 62.8 kg
[2020-10-08 14:33] VITALS: BP 1448/74; PULSE 67; TEMP 98.8
== END 2020-10-08 19:23 | disposition home or self-care (01) ==
LOC: EUO 13:33
DX: J44.9 Chronic obstructive pulmonary disease, unspecified (principal)
CPT/HCPCS: J2182

== ENCOUNTER 2020-11-10 13:10 | Outpatient (CLI) | payer MEDICARE, BC ==
[~2020-11-10] VITALS: Ht 170.2 cm; Wt 72.7 kg
[2020-11-10 13:18] VITALS: BP 178/78; PULSE 75; TEMP 98.3
== END 2020-11-10 13:37 | disposition home or self-care (01) ==
LOC: EUO 13:10
DX: J44.9 Chronic obstructive pulmonary disease, unspecified (principal); Z79.899 Other long term (current) drug therapy
CPT/HCPCS: J2182

== ENCOUNTER 2020-12-08 12:46 | Outpatient (CLI) | payer MEDICARE, BC ==
[~2020-12-08] VITALS: Ht 170.2 cm; Wt 71.2 kg
[2020-12-08 12:53] VITALS: BP 164/72; PULSE 80; TEMP 98.2
== END 2020-12-08 14:00 | disposition home or self-care (01) ==
LOC: EUO 12:46
DX: J44.9 Chronic obstructive pulmonary disease, unspecified (principal)
CPT/HCPCS: J2182

== ENCOUNTER 2021-01-05 13:02 | Outpatient (CLI) | payer MEDICARE, BC ==
[~2021-01-05] VITALS: Ht 170.2 cm; Wt 70.8 kg
[2021-01-05 13:56] VITALS: BP 136/67; PULSE 80; TEMP 98.2
== END 2021-01-05 14:00 | disposition home or self-care (01) ==
LOC: EUO 13:02
DX: J44.9 Chronic obstructive pulmonary disease, unspecified (principal); Z79.899 Other long term (current) drug therapy
CPT/HCPCS: J2182

== ENCOUNTER 2021-02-05 13:16 | Outpatient (CLI) | payer MEDICARE, BC ==
[~2021-02-05] VITALS: Ht 170.2 cm; Wt 71.5 kg
[2021-02-05 13:30] VITALS: BP 137/67; PULSE 87; TEMP 98.5
--- NOTE | 2021-02-05 14:10 | NUR ---
Pt assisted out to car by wheelchair following injection. Remains free of complaints.
== END 2021-02-05 14:41 | disposition home or self-care (01) ==
LOC: EUO 13:16
DX: J44.9 Chronic obstructive pulmonary disease, unspecified (principal); Z79.899 Other long term (current) drug therapy
CPT/HCPCS: J2182

== ENCOUNTER 2021-03-05 13:24 | Outpatient (CLI) | payer MEDICARE, BC ==
[~2021-03-05] VITALS: Ht 170.2 cm; Wt 87.7 kg
[2021-03-05 14:13] VITALS: BP 102/88; PULSE 101; TEMP 98.9
== END 2021-03-05 14:13 | disposition home or self-care (01) ==
LOC: EUO 13:24
DX: J44.9 Chronic obstructive pulmonary disease, unspecified (principal); Z79.899 Other long term (current) drug therapy
CPT/HCPCS: J2182

== ENCOUNTER 2021-04-02 13:05 | Outpatient (CLI) | payer MEDICARE, BC ==
[~2021-04-02] VITALS: Ht 170.2 cm; Wt 71.2 kg
[2021-04-02 13:48] VITALS: BP 117/53; PULSE 89; TEMP 99
== END 2021-04-02 13:51 | disposition home or self-care (01) ==
LOC: EUO 13:05
DX: J44.9 Chronic obstructive pulmonary disease, unspecified (principal); Z79.899 Other long term (current) drug therapy
CPT/HCPCS: J2182

== ENCOUNTER 2021-04-30 13:20 | Outpatient (CLI) | payer MEDICARE, BC ==
[~2021-04-30] VITALS: Ht 170.2 cm; Wt 68.0 kg
[2021-04-30 13:40] VITALS: BP 144/65; PULSE 76; TEMP 98.3
[2021-04-30] MEDS ORDERED: ZITHROMAX 250M250 MG PO (13:44)
== END 2021-04-30 15:06 | disposition home or self-care (01) ==
LOC: EUO 13:20
DX: J44.9 Chronic obstructive pulmonary disease, unspecified (principal); Z79.899 Other long term (current) drug therapy
CPT/HCPCS: J2182

== ENCOUNTER 2021-05-28 15:42 | Outpatient (CLI) | payer MEDICARE, BC ==
[~2021-05-28] VITALS: Ht 170.2 cm; Wt 66.8 kg
[2021-05-28 16:17] VITALS: BP 114/51; PULSE 91; TEMP 98.5
== END 2021-05-28 17:16 | disposition home or self-care (01) ==
LOC: EUO 15:42
DX: J44.9 Chronic obstructive pulmonary disease, unspecified (principal); Z79.899 Other long term (current) drug therapy
CPT/HCPCS: J2182

== ENCOUNTER → 2021-06-01 | Outpatient (CLI) | payer MEDICARE, BC | LOC: MC.RAD 11:30 | DX: Z12.31 Encounter for screening mammogram for malignant neoplasm of breast (principal) ==

== ENCOUNTER → 2021-06-21 | Outpatient (CLI) | payer MEDICARE, BC | LOC: COL.RAD 14:08 | DX: E04.2 Nontoxic multinodular goiter (principal) ==

== ENCOUNTER 2021-06-25 13:21 | Outpatient (CLI) | payer MEDICARE, BC ==
[~2021-06-25] VITALS: Ht 170.2 cm; Wt 69.9 kg
== END 2021-06-25 14:48 ==
LOC: EUO 13:21
DX: J44.9 Chronic obstructive pulmonary disease, unspecified (principal); Z79.899 Other long term (current) drug therapy
CPT/HCPCS: J2182

== ENCOUNTER 2021-07-23 13:10 | Outpatient (CLI) | payer MEDICARE, BC ==
[2021-07-23 13:44] VITALS: BP 128/67; PULSE 79; TEMP 98.9
== END 2021-07-23 14:07 ==
LOC: EUO 13:10
DX: J44.9 Chronic obstructive pulmonary disease, unspecified (principal)
CPT/HCPCS: J2182

== ENCOUNTER → 2021-08-20 | Outpatient (CLI) | payer MEDICARE, BC ==
[~2021-08-20] VITALS: Ht 170.2 cm; Wt 68.4 kg
[2021-08-20 13:09] VITALS: BP 149/67; PULSE 79; TEMP 98.2
== END ==
LOC: EUO 12:54
DX: J44.9 Chronic obstructive pulmonary disease, unspecified (principal)
CPT/HCPCS: J2182

== ENCOUNTER 2021-09-17 13:06 | Outpatient (CLI) | payer MEDICARE, BC ==
[2021-09-17 13:32] VITALS: BP 131/67; PULSE 90; TEMP 97.9
== END 2021-09-17 18:32 | disposition home or self-care (01) ==
LOC: EUO 13:06
DX: J44.9 Chronic obstructive pulmonary disease, unspecified (principal); Z79.899 Other long term (current) drug therapy
CPT/HCPCS: J2182

== ENCOUNTER 2021-09-25 22:20 | Emergency (ER) | payer MEDICARE, BC ==
[~2021-09-25] VITALS: Ht 170.2 cm; Wt 70.5 kg
[2021-09-25 22:23] VITALS: TEMP 98.3
[2021-09-25] MEDS ORDERED: PREDNISONE20 MG PO (23:40)
[2021-09-25] MEDS ORDERED: ROXICODONE 55 MG/TAB PO (23:40)
[2021-09-26 00:39] VITALS: BP 149/87; PULSE 86
== END 2021-09-26 00:39 | disposition home or self-care (01) ==
LOC: COL.ER 22:20
DX: S42.211A Unspecified displaced fracture of surgical neck of right humerus, initial encounter for closed fracture (principal); J44.9 Chronic obstructive pulmonary disease, unspecified; I10 Essential (primary) hypertension; Z79.899 Other long term (current) drug therapy; Z86.73 Personal history of transient ischemic attack (TIA), and cerebral infarction without residual deficits; W01.0XXA Fall on same level from slipping, tripping and stumbling without subsequent striking against object, initial encounter; Y92.009 Unspecified place in unspecified non-institutional (private) residence as the place of occurrence of the external cause
CPT/HCPCS: J2270; J7512

== ENCOUNTER → 2021-10-15 | Outpatient (CLI) | payer MEDICARE, BC ==
[~2021-10-15] VITALS: Ht 170.2 cm; Wt 68.9 kg
[~2021-10-15] MED LIST changes: +ROXICODONE 55 MG/TAB PO
[2021-10-15 14:19] VITALS: BP 139/69; PULSE 86; TEMP 99.2
== END ==
LOC: EUO 13:30
DX: J44.9 Chronic obstructive pulmonary disease, unspecified (principal); Z79.899 Other long term (current) drug therapy
CPT/HCPCS: J2182

== ENCOUNTER 2021-11-12 13:12 | Outpatient (CLI) | payer MEDICARE, BC ==
[~2021-11-12] VITALS: Ht 170.2 cm; Wt 65.7 kg
[2021-11-12 14:02] VITALS: BP 153/68; PULSE 71; TEMP 98.4
== END 2021-11-12 15:06 ==
LOC: EUO 13:12
DX: J44.9 Chronic obstructive pulmonary disease, unspecified (principal); Z79.899 Other long term (current) drug therapy
CPT/HCPCS: J2182

== ENCOUNTER 2021-12-10 13:20 | Outpatient (CLI) | payer MEDICARE, BC ==
[~2021-12-10] VITALS: Ht 170.2 cm; Wt 63.6 kg
[2021-12-10 14:15] VITALS: BP 182/81; PULSE 87; TEMP 98.5
== END 2021-12-10 14:34 ==
LOC: EUO 13:20
DX: J44.9 Chronic obstructive pulmonary disease, unspecified (principal)
CPT/HCPCS: J2182

== ENCOUNTER 2022-01-10 13:10 | Outpatient (CLI) | payer MEDICARE, BC ==
[~2022-01-10] VITALS: Ht 170.2 cm; Wt 65.6 kg
[2022-01-10 13:47] VITALS: BP 124/74; PULSE 86; TEMP 97.8
== END 2022-01-10 14:40 | disposition home or self-care (01) ==
LOC: EUO 13:10
DX: J44.9 Chronic obstructive pulmonary disease, unspecified (principal); Z79.899 Other long term (current) drug therapy
CPT/HCPCS: J2182

== ENCOUNTER 2022-02-08 13:12 | Outpatient (CLI) | payer MEDICARE, BC ==
[~2022-02-08] VITALS: Ht 170.2 cm; Wt 64.2 kg
[2022-02-08 14:05] VITALS: BP 123/62; PULSE 80; TEMP 98.1
== END 2022-02-08 15:00 | disposition home or self-care (01) ==
LOC: EUO 13:12
DX: J44.9 Chronic obstructive pulmonary disease, unspecified (principal); Z79.899 Other long term (current) drug therapy
CPT/HCPCS: J2182

== ENCOUNTER 2022-03-08 13:24 | Outpatient (CLI) | payer MEDICARE, BC ==
[~2022-03-08] VITALS: Ht 170.2 cm; Wt 64.3 kg
[2022-03-08 13:47] VITALS: BP 145/66; PULSE 78; TEMP 98.6
[2022-03-08] MEDS ORDERED: NUCALA100 MG SQ (14:14)
== END 2022-03-08 14:20 ==
LOC: EUO 13:24
DX: J44.9 Chronic obstructive pulmonary disease, unspecified (principal)
CPT/HCPCS: J2182

== ENCOUNTER 2022-04-05 13:19 | Outpatient (CLI) | payer MEDICARE, BC ==
[~2022-04-05] VITALS: Ht 170.2 cm; Wt 63.4 kg
[~2022-04-05 13:19] MED LIST changes: +NUCALA100 MG SQ
[2022-04-05 13:46] VITALS: BP 126/64; PULSE 89; TEMP 98.6
== END 2022-04-05 17:11 | disposition home or self-care (01) ==
LOC: EUO 13:19
DX: J44.9 Chronic obstructive pulmonary disease, unspecified (principal)
CPT/HCPCS: J2182

== ENCOUNTER 2022-05-03 13:11 | Outpatient (CLI) | payer MEDICARE, BC ==
[~2022-05-03] VITALS: Ht 170.2 cm; Wt 63.3 kg
[2022-05-03 13:48] VITALS: BP 125/72; PULSE 79; TEMP 98.6
== END 2022-05-03 14:45 | disposition home or self-care (01) ==
LOC: EUO 13:11
DX: J44.9 Chronic obstructive pulmonary disease, unspecified (principal)
CPT/HCPCS: J2182

== ENCOUNTER 2022-05-31 13:09 | Outpatient (CLI) | payer MEDICARE, BC ==
[2022-05-31 13:29] VITALS: BP 137/72; PULSE 82; TEMP 98.4
== END 2022-05-31 20:43 | disposition home or self-care (01) ==
LOC: EUO 13:09
DX: J44.9 Chronic obstructive pulmonary disease, unspecified (principal)
CPT/HCPCS: J2182

== ENCOUNTER → 2022-06-02 | Outpatient (CLI) | payer MEDICARE, BC | LOC: MC.RAD 11:09 | DX: Z12.31 Encounter for screening mammogram for malignant neoplasm of breast (principal); N64.89 Other specified disorders of breast ==

== ENCOUNTER 2022-07-01 13:16 | Outpatient (CLI) | payer MEDICARE, BC ==
[~2022-07-01] VITALS: Ht 170.2 cm; Wt 64.4 kg
[2022-07-01 15:10] VITALS: BP 102/57; PULSE 87; TEMP 99
== END 2022-07-01 15:17 ==
LOC: EUO 13:16
DX: J44.9 Chronic obstructive pulmonary disease, unspecified (principal)
CPT/HCPCS: J2182

== ENCOUNTER 2022-10-19 14:51 | Outpatient (CLI) | payer MEDICARE, BC ==
[~2022-10-19] VITALS: Ht 170.2 cm; Wt 61.6 kg
[2022-10-19 15:29] VITALS: BP 181/67; PULSE 83; TEMP 97.9
== END 2022-10-19 16:27 | disposition home or self-care (01) ==
LOC: EUO 14:51
DX: J44.9 Chronic obstructive pulmonary disease, unspecified (principal)
CPT/HCPCS: J2182

== ENCOUNTER 2022-12-15 13:25 | Outpatient (CLI) | payer MEDICARE, BC ==
[~2022-12-15] VITALS: Ht 170.2 cm; Wt 63.5 kg
[2022-12-15 13:43] VITALS: BP 131/63; PULSE 72; TEMP 98.5
--- NOTE | 2022-12-15 14:35 | NUR ---
WHEELED PT OUT TO MEET DAUGHTER. DAUGHTER TO DRIVE HER HOME.
== END 2022-12-15 14:15 | disposition home or self-care (01) ==
LOC: EUO 13:25
DX: J44.9 Chronic obstructive pulmonary disease, unspecified (principal)
CPT/HCPCS: J2182

== ENCOUNTER 2023-01-19 13:35 | Outpatient (CLI) | payer MEDICARE, BC ==
[~2023-01-19] VITALS: Ht 170.2 cm; Wt 61.1 kg
[2023-01-19 13:56] VITALS: BP 152/72; PULSE 71; TEMP 98.5
--- NOTE | 2023-01-19 14:17 | NUR ---
PT BROUGHT UP TO EU13 BY WHEELCHAIR. SCHEDULED FOR A NUCALA INJECTION. MEDS AND HX REVIEWED, VITALS TAKEN. NUCALA INJECTION GIVEN. PT WAITING 15 MIN POST INJECTION. PT VERBALIZED THEY WOUDLD LIKE TO EXIT THE UNIT BY WHEELCHAIR.
== END 2023-01-19 14:27 | disposition home or self-care (01) ==
LOC: EUO 13:35
DX: J44.9 Chronic obstructive pulmonary disease, unspecified (principal)
CPT/HCPCS: J2182

== ENCOUNTER 2023-09-26 13:28 | Outpatient (CLI) | payer MEDICARE, BC ==
[~2023-09-26] VITALS: Ht 170.2 cm; Wt 60.5 kg
[2023-09-26 13:39] VITALS: BP 174/56; PULSE 88; TEMP 98.2
== END 2023-09-26 14:16 | disposition home or self-care (01) ==
LOC: EUO 13:28
DX: J44.9 Chronic obstructive pulmonary disease, unspecified (principal)
CPT/HCPCS: J2182

== ENCOUNTER 2023-11-21 13:26 | Outpatient (CLI) | payer MEDICARE, BC ==
[~2023-11-21] VITALS: Ht 170.2 cm; Wt 59.0 kg
[2023-11-21 13:51] VITALS: BP 143/64; PULSE 77; TEMP 98.2
[2023-11-21] MEDS ORDERED: CHERATUSSIN AC240 ML PO (13:55)
[2023-11-21] MEDS ORDERED: LEVAQUIN 5500 MG/TA1 PO (13:55)
[2023-11-21] MEDS ORDERED: Mepolizumab 100 MG VIAL SQ SCH (14:00)
--- NOTE | 2023-11-21 14:27 | NUR ---
Pt assisted out by wheelchair to wait for her daughter. She is free of complaint at discharge.
[2023-11-21 15:54] LABS: COLLECTION METHOD CLEAN CATCH
[2023-11-21 15:58] LABS: PH 7.5 (5.0-8.5); URINE APPEARANCE CLEAR (CLEAR/HAZY); URINE BLOOD NEGATIVE (NEGATIVE); URINE COLOR YELLOW (YELLOW); URINE GLUCOSE NEGATIVE (NEGATIVE); URINE KETONE NEGATIVE (NEGATIVE); URINE NITRATE NEGATIVE (NEGATIVE); URINE PROTEIN(semi-quant) NEGATIVE (NEGATIVE); URINE UROBILINOGEN 0.2 E.U/dL (0.2-1.0)
== END 2023-11-21 14:27 | disposition home or self-care (01) ==
LOC: EUO 13:26
PROVIDERS: Family Medicine
DX: R30.0 Dysuria (principal)
CPT/HCPCS: J2182

== ENCOUNTER 2023-12-19 13:14 | Outpatient (CLI) | payer MEDICARE, BC ==
[~2023-12-19 13:14] MED LIST changes: +CHERATUSSIN AC240 ML PO
[2023-12-19 13:31] VITALS: BP 179/83; PULSE 84; TEMP 98.1
[2023-12-19] MEDS ORDERED: Mepolizumab 100 MG VIAL SQ SCH (14:00)
--- NOTE | 2023-12-19 14:29 | NUR ---
PT TOLERATED INJECTION WELL. VS REMAINED WITHIN NORMAL LIMITS. PT ASSISTED TO MAIN LOBBY VIA WHEELCHAIR UPON DISCHARGE. PT FREE FROM ACUTE CONCERNS AND COMPLAINTS.
== END 2023-12-19 14:29 | disposition home or self-care (01) ==
LOC: EUO 13:14
DX: J44.9 Chronic obstructive pulmonary disease, unspecified (principal)
CPT/HCPCS: J2182

== ENCOUNTER → 2023-12-21 | Outpatient (CLI) | payer MEDICARE, BC | LOC: MC.RAD 14:52 | DX: Z12.31 Encounter for screening mammogram for malignant neoplasm of breast (principal) ==

== ENCOUNTER 2024-03-12 13:25 | Outpatient (CLI) | payer MEDICARE, BC ==
[~2024-03-12] VITALS: Ht 170.2 cm; Wt 58.2 kg
[2024-03-12] MEDS ORDERED: Mepolizumab 100 MG VIAL SQ ONE (13:45)
[2024-03-12 14:22] VITALS: BP 162/71; PULSE 78; TEMP 97.7
== END 2024-03-12 14:28 | disposition home or self-care (01) ==
LOC: EUO 13:25
DX: J44.9 Chronic obstructive pulmonary disease, unspecified (principal)
CPT/HCPCS: J2182

== ENCOUNTER 2024-05-21 10:05 | Emergency (ER) | payer MEDICARE, BC ==
[~2024-05-21] VITALS: Ht 170.2 cm; Wt 57.7 kg
[~2024-05-21 10:05] MED LIST changes: +BIAXIN 500MG T500 MG PO
[2024-05-21 10:13] VITALS: TEMP 97.9
[2024-05-21] MEDS ORDERED: Albuterol/Ipratropium 3 MG-0.5 MG/3 ML Neb Soln IH ONE (10:30)
[2024-05-21 10:44] LABS: BASO % 0.7 % (0.0-2.0); EOS % 0.7 % (0.0-4.0); GRAN # 2.2 K/mm3 (1.4-6.5); GRAN % 49.8 % (42.2-75.2); HEMATOCRIT 40.4 % (37.0-47.0); HEMOGLOBIN 12.8 g/dl (12.5-16.0); LYMPH # 1.8 K/mm3 (1.2-3.4); LYMPH % 41.3 % (20.0-51.0); MEAN CELL VOLUME 91 fl (80.0-100.0); MEAN CORPUSCULAR HEMOGLOBIN 29 pg (27-31); MEAN CORPUSCULAR HGB CONC 32 g/dl (33.0-37.0); MEAN PLATELET VOLUME 9.6 fl (7.4-10.4); MONO # 0.3 K/mm3 (0.1-0.6); MONO % 7.5 % (1.7-9.3); PLATELET COUNT 322 K/mm3 (130-400); RED BLOOD COUNT 4.46 M/mm3 (4.10-5.30); REDCELL DISTRIBUTION WIDTH-CV 12.5 % (11.5-14.5)
[2024-05-21 11:01] LABS: ALBUMIN 3.5 g/dL (3.4-4.8); BILIRUBIN,TOTAL 0.2 mg/dL (0.2-1.2); CALCIUM 10.1 mg/dL (8.4-10.2); CREATININE, serum 0.85 mg/dL (0.57-1.11); TOTAL PROTEIN 7.2 g/dl (6.2-8.1)
[2024-05-21 11:07] LABS: TROPONIN-I 0.012 ng/mL (0.00-0.033)
[2024-05-21] MEDS ORDERED: PREDNISONE20 MG PO (12:03)
[2024-05-21 12:25] VITALS: BP 183/86; PULSE 84
== END 2024-05-21 12:25 | disposition home or self-care (01) ==
LOC: COL.ER 10:05
PROVIDERS: Physician Assistant
DX: J44.1 Chronic obstructive pulmonary disease with (acute) exacerbation (principal); Z99.81 Dependence on supplemental oxygen

== ENCOUNTER 2024-07-02 13:04 | Outpatient (CLI) | payer MEDICARE, BC ==
[~2024-07-02] VITALS: Ht 170.2 cm; Wt 56.4 kg
[2024-07-02 13:39] VITALS: BP 164/69; PULSE 75; TEMP 97.8
[2024-07-02] MEDS ORDERED: Mepolizumab 100 MG VIAL SQ ONE (13:45)
--- NOTE | 2024-07-02 14:11 | NUR ---
Pt tolerated med without issue. She is assisted out by wheelchair with belongings. She is free of complaints at discharge.
== END 2024-07-02 14:11 | disposition home or self-care (01) ==
LOC: EUO 13:04
DX: J44.9 Chronic obstructive pulmonary disease, unspecified (principal)
CPT/HCPCS: J2182